=== PATIENT | male | born 1955 | race Caucasian/White ===

== ENCOUNTER 2019-02-16 13:34 | Inpatient (IN) | payer OTHER, MEDICAID ==
[~2019-02-16] VITALS: Ht 175.3 cm; Wt 71.7 kg
[2019-02-16 15:34] LABS: BASOPHILS % (AUTO) 0.2 % (0.0-2.0); EOSINOPHILS # (AUTO) 0.1 K/uL (0.0-0.4); EOSINOPHILS % (AUTO) 1.3 % (0.0-4.0); HEMATOCRIT 39.3 % (36-54); HEMOGLOBIN 12.9 g/dL (14.0-18.0); LYMPHOCYTES # (AUTO) 1.3 K/uL (1.0-5.5); LYMPHOCYTES % (AUTO) 21.3 % (20.5-51.5); MEAN CORPUSCULAR HEMOGLOBIN 30 pg (27-31); MEAN CORPUSCULAR HGB CONC 33 % (32-36); MEAN CORPUSCULAR VOLUME 91 fL (79.0-98.0); MONOCYTES # (AUTO) 0.6 K/uL (0.0-1.0); MONOCYTES % (AUTO) 9.6 % (1.7-9.3); NEUTROPHILS # (AUTO) 4.1 K/uL (1.8-7.7); NEUTROPHILS % (AUTO) 67.6 % (40.0-70.0); PLATELET COUNT (AUTO) 185 K/uL (130-430); RED CELL DISTRIBUTION WIDTH 14.9 % (9.0-15.0)
[2019-02-16 15:57] LABS: CALCIUM 9.1 mg/dL (8.4-11.0); CREATININE 0.72 mg/dL (0.55-1.30); POTASSIUM 4.4 mmol/L (3.5-5.1)
[2019-02-16 16:06] LABS: ALBUMIN 2.9 g/dL (3.4-4.8); TOTAL BILIRUBIN 0.3 mg/dL (0.0-1.0)
[2019-02-16] MEDS ORDERED: cefTRIAXone 1 GM IVPB PREMIX 50 ML IV ONE (18:15)
[2019-02-16] MEDS ORDERED: ATEN-41 PO (18:18)
[2019-02-16] MEDS ORDERED: CALC-808 GT (18:20)
[2019-02-16] MEDS ORDERED: LACT-200 GT (18:22)
[2019-02-16] MEDS ORDERED: ONDANSETRON HCL 4 MG/2 ML VIAL IVP PRN (19:15)
[2019-02-16] MEDS ORDERED: ACETAMINOPHEN 325 MG TABLET PO PRN (19:15)
[2019-02-16] MEDS ORDERED: ZOLPIDEM TARTRATE 5 MG TABLET PO PRN (19:15)
[2019-02-16] MEDS ORDERED: IPRATROPIUM/ALBUTEROL SULFATE 3 ML AMPUL.NEB (DUONEB) INH PRN (19:15)
[2019-02-16] MEDS ORDERED: MILK OF MAGNESIA 30 ML UDC PO PRN (19:15)
[2019-02-16] MEDS ORDERED: CEFEPIME 1 GM in D5W 50 ML IV ONE (19:30)
[2019-02-16 19:54] LABS: BILIRUBIN,URINE NEGATIVE (NEGATIVE); CLARITY/URINE CLEAR (CLEAR); COLOR,URINE YELLOW (YELLOW); GLUCOSE,URINE NEGATIVE (NEGATIVE); KETONES,URINE NEGATIVE (NEGATIVE); LEUKOCYTE ESTERASE ,URINE TRACE (NEGATIVE); NITRITE, URINE NEGATIVE (NEGATIVE); PROTEIN URINE NEGATIVE (NEGATIVE); UROBILINOGEN,URINE 0.2 (0.2-1.0)
[2019-02-16 20:04] LABS: BLOOD, URINE TRACE (NEGATIVE)
[2019-02-16 20:23] LABS: BACTERIA,URINE FEW /HPF (None Seen); MUCUS,URINE None Seen /LPF (None Seen)
[2019-02-16 22:48] VITALS: BP_SYST 145
[2019-02-16] MEDS: D5NS 1,000 ML IV SCH (22:48)
[2019-02-16] MEDS: HEPARIN SODIUM,PORCINE 5000 UNITS/ML VIAL SUBCUT SCH (22:51)
[2019-02-17] VITALS: BP_SYST 135
[2019-02-17] MEDS: D5NS 1,000 ML IV SCH (05:37)
[2019-02-17 07:53] LABS: BASOPHILS % (AUTO) 0.3 % (0.0-2.0); EOSINOPHILS # (AUTO) 0.1 K/uL (0.0-0.4); EOSINOPHILS % (AUTO) 0.6 % (0.0-4.0); HEMATOCRIT 39.7 % (36-54); HEMOGLOBIN 13.1 g/dL (14.0-18.0); LYMPHOCYTES # (AUTO) 1.1 K/uL (1.0-5.5); LYMPHOCYTES % (AUTO) 12.4 % (20.5-51.5); MEAN CORPUSCULAR HEMOGLOBIN 30 pg (27-31); MEAN CORPUSCULAR HGB CONC 33 % (32-36); MEAN CORPUSCULAR VOLUME 91 fL (79.0-98.0); MONOCYTES # (AUTO) 0.9 K/uL (0.0-1.0); MONOCYTES % (AUTO) 9.7 % (1.7-9.3); NEUTROPHILS # (AUTO) 6.8 K/uL (1.8-7.7); PLATELET COUNT (AUTO) 177 K/uL (130-430); RED BLOOD CELL COUNT(AUTO) 4.37 MIL/uL (4.2-6.2); RED CELL DISTRIBUTION WIDTH 14.9 % (9.0-15.0); WHITE BLOOD COUNT (AUTO) 8.8 K/uL (4.8-10.8)
[2019-02-17 08:08] LABS: CALCIUM 8.6 mg/dL (8.4-11.0); CREATININE 0.66 mg/dL (0.55-1.30); POTASSIUM 3.9 mmol/L (3.5-5.1)
[2019-02-17 08:16] VITALS: BP_SYST 113
[2019-02-17] MEDS: ATENOLOL 25 MG TABLET(TENORMIN) PO SCH (09:00)
[2019-02-17] MEDS ORDERED: CALCIUM 200 mg(from Citrate)/VITAMIN D3 250 units TABLET GT SCH (09:00)
[2019-02-17] MEDS: CEFEPIME 1 GM in D5W 50 ML IV SCH ×2 (11:28→22:03)
[2019-02-17] MEDS: HEPARIN SODIUM,PORCINE 5000 UNITS/ML VIAL SUBCUT SCH ×2 (11:30→22:30)
[2019-02-17] MEDS: CALCIUM CARBONATE/VITAMIN D3 1 TAB TABLET GT SCH (11:35)
[2019-02-17 12:02] VITALS: BP_SYST 101
[2019-02-17 16:31] VITALS: BP_SYST 118
[2019-02-18] MEDS ORDERED: VANCOMYCIN HCL 1 GM/NS PREMIX 250 ML IV ONE
[2019-02-18] MEDS ORDERED: VANCOMYCIN HCL 1000 MG/VIAL IV ONE (00:31)
[2019-02-18 01:09] VITALS: BP_SYST 110
[2019-02-19 20:00] VITALS: BP_SYST 148
[2019-02-19] MEDS: D5NS 1,000 ML IV SCH (21:44)
[2019-02-19] MEDS: CEFEPIME 1 GM in D5W 50 ML IV SCH (21:46)
[2019-02-19] MEDS: HEPARIN SODIUM,PORCINE 5000 UNITS/ML VIAL SUBCUT SCH (21:55)
[2019-02-20] MEDS: D5NS 1,000 ML IV SCH (00:11)
[2019-02-20 02:22] VITALS: BP_SYST 136
[2019-02-20] MEDS ORDERED: PIPERACILLIN/TAZOBACTAM 4.5 GM/VIAL (ZOSYN) IV ONE (05:54)
[2019-02-20] MEDS ORDERED: PIPERACILLIN/TAZO 3.375/DEX-IS 50 ML IV SCH (06:00)
[2019-02-20] MEDS: PIPERACILLIN/TAZO 4.5GM/DEX-IS 100 ML IV SCH ×2 (06:29→15:08)
[2019-02-20 07:41] LABS: BASOPHILS % (AUTO) 0.1 % (0.0-2.0); EOSINOPHILS # (AUTO) 0.1 K/uL (0.0-0.4); EOSINOPHILS % (AUTO) 1.1 % (0.0-4.0); HEMATOCRIT 34.2 % (36-54); HEMOGLOBIN 11.6 g/dL (14.0-18.0); LYMPHOCYTES % (AUTO) 16.6 % (20.5-51.5); MEAN CORPUSCULAR HEMOGLOBIN 31 pg (27-31); MEAN CORPUSCULAR HGB CONC 34 % (32-36); MEAN CORPUSCULAR VOLUME 91 fL (79.0-98.0); MONOCYTES # (AUTO) 1.7 K/uL (0.0-1.0); MONOCYTES % (AUTO) 14.2 % (1.7-9.3); NEUTROPHILS # (AUTO) 8.1 K/uL (1.8-7.7); PLATELET COUNT (AUTO) 219 K/uL (130-430); RED BLOOD CELL COUNT(AUTO) 3.78 MIL/uL (4.2-6.2); RED CELL DISTRIBUTION WIDTH 15.2 % (9.0-15.0); WHITE BLOOD COUNT (AUTO) 11.9 K/uL (4.8-10.8)
[2019-02-20 08:00] VITALS: BP_SYST 110
[2019-02-20] MEDS: CALCIUM CARBONATE/VITAMIN D3 1 TAB TABLET GT SCH (08:56)
[2019-02-20] MEDS: ATENOLOL 25 MG TABLET(TENORMIN) PO SCH (08:56)
[2019-02-20] MEDS: HEPARIN SODIUM,PORCINE 5000 UNITS/ML VIAL SUBCUT SCH (08:58)
[2019-02-20] MEDS ORDERED: VANCOMYCIN HCL 1.25 GM/NS 250 ML IV SCH (10:00)
[2019-02-20 10:11] LABS: CALCIUM 8.5 mg/dL (8.4-11.0); CREATININE 0.54 mg/dL (0.55-1.30); POTASSIUM 3.5 mmol/L (3.5-5.1)
[2019-02-20] MEDS ORDERED: VANCOMYCIN HCL 1 GM/NS PREMIX 250 ML IV SCH (11:00)
[2019-02-20 11:49] VITALS: BP_SYST 112
[2019-02-20 17:18] VITALS: BP_SYST 119
[2019-02-22 15:57] LABS: HEMATOCRIT 35.7 % (36-54); HEMOGLOBIN 11.8 g/dL (14.0-18.0); MEAN CORPUSCULAR HEMOGLOBIN 30 pg (27-31); MEAN CORPUSCULAR VOLUME 91 fL (79.0-98.0); RED BLOOD CELL COUNT(AUTO) 3.91 MIL/uL (4.2-6.2); WHITE BLOOD COUNT (AUTO) 16.2 K/uL (4.8-10.8)
[2019-02-22 15:58] LABS: MEAN CORPUSCULAR HGB CONC 33 % (32-36); PLATELET COUNT (AUTO) 188 K/uL (130-430)
[2019-02-22 16:00] LABS: BAND % (MANUAL) 9 % (0-6); LYMPHOCYTES % (MANUAL) 5 % (20-46)
[2019-02-22 16:01] LABS: BASOPHILS % (MANUAL) 0 % (0-2); EOSINOPHILS % (MANUAL) 0 % (0-7); MONOCYTES % (MANUAL) 10 % (0-11)
[2019-02-22 16:02] LABS: POTASSIUM 3.9 mmol/L (3.5-5.1)
[2019-02-22 16:03] LABS: ALBUMIN 2.5 g/dL (3.4-4.8); CALCIUM 8.5 mg/dL (8.4-11.0); CREATININE 0.67 mg/dL (0.55-1.30); TOTAL BILIRUBIN 0.4 mg/dL (0.0-1.0)
[2019-02-22 16:04] LABS: THYROID STIMULATING HORMONE 7.85 uIu/mL (0.34-4.82)
[2019-03-12 09:39] LABS: POTASSIUM 3.7 mmol/L (3.5-5.1)
[2019-03-12 09:40] LABS: CALCIUM 8.5 mg/dL (8.4-11.0); CREATININE 0.66 mg/dL (0.55-1.30); WHITE BLOOD COUNT (AUTO) 16.9 K/uL (4.8-10.8)
[2019-03-12 09:41] LABS: EOSINOPHILS % (AUTO) 0.2 % (0.0-4.0); HEMATOCRIT 34.7 % (36-54); HEMOGLOBIN 11.4 g/dL (14.0-18.0); LYMPHOCYTES % (AUTO) 10.3 % (20.5-51.5); MEAN CORPUSCULAR HEMOGLOBIN 30 pg (27-31); MEAN CORPUSCULAR HGB CONC 33 % (32-36); MEAN CORPUSCULAR VOLUME 93 fL (79.0-98.0); MONOCYTES % (AUTO) 10.1 % (1.7-9.3); PLATELET COUNT (AUTO) 173 K/uL (130-430); RED BLOOD CELL COUNT(AUTO) 3.75 MIL/uL (4.2-6.2); RED CELL DISTRIBUTION WIDTH 15.6 % (9.0-15.0)
[2019-03-12 09:42] LABS: BASOPHILS # (AUTO) 0.1 K/uL (0.0-0.2); BASOPHILS % (AUTO) 0.4 % (0.0-2.0); LYMPHOCYTES # (AUTO) 1.7 K/uL (1.0-5.5); MONOCYTES # (AUTO) 1.7 K/uL (0.0-1.0); NEUTROPHILS # (AUTO) 13.3 K/uL (1.8-7.7)
== END 2019-02-20 19:20 | DRG 871 ==
LOC: SED 13:34 → STU 18:45
PROVIDERS: ADMIT Internal Medicine; ATTEND Internal Medicine
DX: A41.9 Sepsis, unspecified organism (principal); G93.41 Metabolic encephalopathy; N39.0 Urinary tract infection, site not specified; E87.2 Acidosis; G93.1 Anoxic brain damage, not elsewhere classified; E44.0 Moderate protein-calorie malnutrition; J20.9 Acute bronchitis, unspecified; I10 Essential (primary) hypertension; E86.0 Dehydration; B96.89 Other specified bacterial agents as the cause of diseases classified elsewhere; F79 Unspecified intellectual disabilities; F31.9 Bipolar disorder, unspecified; R13.10 Dysphagia, unspecified; Z79.899 Other long term (current) drug therapy; Z90.49 Acquired absence of other specified parts of digestive tract; Z93.1 Gastrostomy status
CPT/HCPCS: 36415; 71045; 80048; 80053; 81000-TC; 83605; 83735-TC; 84443-TC; 84484; 85007; 85025; 85027; 85610-TC; 85730-TC; 87040-TC; 87081; 87086; 93005; 96365; 99285; G0378; J0692; J0696; J1644; J2543; J3370; J7042; J7050; J7060

== ENCOUNTER 2019-03-09 06:30 | Day surgery (SDC) | payer OTHER, MEDICAID ==
[~2019-03-09 06:30] MED LIST: ATEN-41 PO; CALC-808 GT; LACT-200 GT
[2019-03-09] MEDS ORDERED: SIMETHICONE 40 MG/0.6 ML ML ONE (07:16)
[2019-03-09] MEDS ORDERED: BENZOCAINE 20% 0.5mL UD SPRAY MM ONE (07:16)
[2019-03-09] MEDS ORDERED: fentaNYL CITRATE/PF 100 MCG/2 ML AMP ONE (07:16)
[2019-03-09] MEDS ORDERED: MIDAZOLAM HCL 5 MG/5 ML VIAL ONE (07:17)
[2019-03-09 10:27] VITALS: BP_SYST 120
== END 2019-03-09 08:50 ==
LOC: SDS 06:30 → SMU 08:14 → SDS 08:50
PROVIDERS: ATTEND Internal Medicine
DX: R13.12 Dysphagia, oropharyngeal phase (principal); J40 Bronchitis, not specified as acute or chronic; J44.9 Chronic obstructive pulmonary disease, unspecified; D64.9 Anemia, unspecified; I12.9 Hypertensive chronic kidney disease with stage 1 through stage 4 chronic kidney disease, or unspecified chronic kidney disease; N18.9 Chronic kidney disease, unspecified; G93.1 Anoxic brain damage, not elsewhere classified; K29.70 Gastritis, unspecified, without bleeding; K21.9 Gastro-esophageal reflux disease without esophagitis
CPT/HCPCS: 43247; G0378; J2250; J3010

== ENCOUNTER 2022-04-04 09:31 | Inpatient (IN) | payer OTHER, MEDICAID ==
[~2022-04-04] VITALS: Ht 152.4 cm; Wt 47.6 kg
[2022-04-04 09:39] VITALS: BP_SYST 127
[2022-04-04] MEDS ORDERED: NACL 0.9% 1,000 ML IV ONE (10:00)
[2022-04-04] MEDS ORDERED: FAMO40TA71 GT (10:05)
[2022-04-04] MEDS ORDERED: ONDA4TAB55 GT (10:05)
[2022-04-04] MEDS ORDERED: LORA-258 GT (10:05)
[2022-04-04] MEDS ORDERED: IPRA3AMP9 INH (10:05)
[2022-04-04] MEDS ORDERED: CLON0.1T GT (10:05)
[2022-04-04] MEDS ORDERED: AMIN30LI2 GT (10:05)
[2022-04-04] MEDS ORDERED: TRAZ-250 GT (10:05)
[2022-04-04] MEDS ORDERED: MULT-1193 GT (10:05)
[2022-04-04] MEDS ORDERED: METO-290 GT (10:05)
[2022-04-04] MEDS ORDERED: VALP250S3 GT ×2 (10:05)
[2022-04-04] MEDS ORDERED: GLYC2TAB21 GT (10:05)
[2022-04-04] MEDS ORDERED: ASCO500T20 GT (10:05)
[2022-04-04] MEDS ORDERED: SER100 GT (10:05)
[2022-04-04] MEDS ORDERED: ACET325T GT (10:05)
[2022-04-04] MEDS ORDERED: FER300L GT (10:05)
[2022-04-04 10:33] LABS: BASOPHILS % (AUTO) 0.1 % (0.0-2.0); EOSINOPHILS # (AUTO) 0.3 K/uL (0.0-0.4); EOSINOPHILS % (AUTO) 3.4 % (0.0-4.0); HEMATOCRIT 31.1 % (36-54); HEMOGLOBIN 10.4 g/dL (14.0-18.0); LYMPHOCYTES # (AUTO) 1.5 K/uL (1.0-5.5); LYMPHOCYTES % (AUTO) 17.2 % (20.5-51.5); MEAN CORPUSCULAR HEMOGLOBIN 32 pg (27-31); MEAN CORPUSCULAR HGB CONC 34 % (32-36); MEAN CORPUSCULAR VOLUME 95 fL (79.0-98.0); MONOCYTES # (AUTO) 0.7 K/uL (0.0-1.0); MONOCYTES % (AUTO) 7.7 % (1.7-9.3); NEUTROPHILS # (AUTO) 6.4 K/uL (1.8-7.7); NEUTROPHILS % (AUTO) 71.6 % (40.0-70.0); PLATELET COUNT (AUTO) 212 K/uL (130-430); RED BLOOD CELL COUNT(AUTO) 3.29 MIL/uL (4.2-6.2); RED CELL DISTRIBUTION WIDTH 15.8 % (9.0-15.0); WHITE BLOOD COUNT (AUTO) 8.9 K/uL (4.8-10.8)
[2022-04-04 10:47] LABS: ANION GAP 7 (5-15); CALCIUM 9.4 mg/dL (8.4-11.0); CHLORIDE 99 mmol/L (98-107); CREATININE 0.56 mg/dL (0.55-1.30); GLUCOSE 88 mg/dL (70-99); UREA NITROGEN, BLOOD 36 mg/dL (8-21)
[2022-04-04 10:48] LABS: BILIRUBIN,URINE NEGATIVE (NEGATIVE); CLARITY/URINE CLEAR (CLEAR); COLOR,URINE YELLOW (YELLOW); GLUCOSE,URINE NEGATIVE (NEGATIVE); KETONES,URINE TRACE (NEGATIVE); LEUKOCYTE ESTERASE ,URINE NEGATIVE (NEGATIVE); NITRITE, URINE NEGATIVE (NEGATIVE); PROTEIN URINE TRACE (NEGATIVE)
[2022-04-04 10:49] LABS: BLOOD, URINE TRACE (NEGATIVE)
[2022-04-04 10:55] LABS: ALANINE AMINOTRANSFERASE 20 U/L (12-78); ALBUMIN 2.4 g/dL (3.4-4.8); ASPARTATE AMINOTRANSFERASE 20 U/L (10-37); TOTAL BILIRUBIN 0.9 mg/dL (0.0-1.0)
[2022-04-04 10:56] LABS: GFR AFRICAN AMERICAN 186 mL/min (>90)
[2022-04-04 11:51] LABS: BACTERIA,URINE FEW /HPF (None Seen); WBC,URINE 0-3 /HPF (0-3); YEAST,URINE Few /HPF (None Seen)
[2022-04-04 15:16] VITALS: BP_SYST 141
[2022-04-04 16:39] VITALS: BP_SYST 123
[2022-04-04] MEDS: D5/0.45 NS 1,000 ML IV SCH (17:16)
[2022-04-04] MEDS ORDERED: KCL 40 mEq in 100 mL (PREMIX) 100 ML IV ONE (18:15)
[2022-04-04 19:30] VITALS: BP_SYST 135
[2022-04-04] MEDS: IPRATROPIUM/ALBUTEROL SULFATE 3 ML AMPUL.NEB (DUONEB) INH SCH (20:41)
[2022-04-04] MEDS: POTASSIUM CHLORIDE 20 mEq in 100 mL (PREMIX) 100 ML x 2 doses IV SCH ×2 (20:54→21:57)
[2022-04-04] MEDS ORDERED: LORazepam 2 MG/ML VIAL IVP PRN (21:30)
[2022-04-04] MEDS ORDERED: LevETIRAcetam 500 MG/5 ML UDC ORAL LIQUID ONE (22:39)
[2022-04-04] MEDS: levETIRAcetam 500 MG in NS 100 ML IV SCH (23:56)
[2022-04-05] VITALS: BP_SYST 127
[2022-04-05] MEDS: IPRATROPIUM/ALBUTEROL SULFATE 3 ML AMPUL.NEB (DUONEB) INH SCH ×4 (01:38→20:17)
[2022-04-05] MEDS: D5/0.45 NS 1,000 ML IV SCH ×2 (05:27→21:14)
[2022-04-05 07:40] VITALS: BP_SYST 133
[2022-04-05] MEDS: levETIRAcetam 500 MG in NS 100 ML IV SCH (09:02)
[2022-04-05 11:33] VITALS: BP_SYST 133
[2022-04-05] MEDS ORDERED: MEPERIDINE HCL/PF 25 MG/ML DISP.SYRIN ONE (11:38)
[2022-04-05] MEDS ORDERED: SIMETHICONE 40 MG/0.6 ML ML ONE (11:38)
[2022-04-05] MEDS ORDERED: MIDAZOLAM HCL 5 MG/5 ML VIAL ONE (11:38)
[2022-04-05] MEDS ORDERED: LORazepam 1 MG TABLET GT PRN (15:15)
[2022-04-05] MEDS ORDERED: METOCLOPRAMIDE HCL 10 MG TABLET GT PRN (15:15)
[2022-04-05] MEDS ORDERED: cloNIDine HCL 0.1 MG TABLET GT PRN (15:15)
[2022-04-05 16:11] VITALS: BP_SYST 99
[2022-04-05 19:20] VITALS: BP_SYST 130
[2022-04-05] MEDS ORDERED: MUPIROCIN 2% TOPICAL OINTMENT 22 GM NS SCH (21:00)
[2022-04-05] MEDS ORDERED: VALPROIC ACID ORAL SYRUP 250 MG/5 ML UDC GT SCH (21:00)
[2022-04-05] MEDS ORDERED: traZODone HCL 50 MG TABLET (DESYREL) GT SCH (21:00)
[2022-04-05] MEDS: QUEtiapine FUMARATE 100 MG TABLET GT SCH (21:11)
[2022-04-06 00:25] VITALS: BP_SYST 105
[2022-04-06] MEDS: IPRATROPIUM/ALBUTEROL SULFATE 3 ML AMPUL.NEB (DUONEB) INH SCH ×2 (01:47→07:14)
[2022-04-06 08:35] VITALS: BP_SYST 116
[2022-04-06] MEDS ORDERED: CALCIUM 200 mg(from Citrate)/VITAMIN D3 250 units TABLET GT SCH (09:00)
[2022-04-06] MEDS ORDERED: CALCIUM CARBONATE/VITAMIN D3 1 TAB TABLET GT SCH (09:00)
[2022-04-06] MEDS ORDERED: VALPROIC ACID ORAL SYRUP 250 MG/5 ML UDC GT SCH (09:00)
[2022-04-06] MEDS ORDERED: FERROUS SULFATE 300 MG/5 ML UDC GT SCH (09:00)
[2022-04-06] MEDS ORDERED: ASCORBIC ACID 500 MG TABLET GT SCH (09:00)
[2022-04-06] MEDS ORDERED: ATENOLOL 25 MG TABLET(TENORMIN) PO SCH (09:00)
[2022-04-06] MEDS ORDERED: FAMOTIDINE 20 MG TABLET GT SCH (09:00)
[2022-04-06 09:10] VITALS: BP_SYST 116
[2022-04-06] MEDS: QUEtiapine FUMARATE 100 MG TABLET GT SCH (09:34)
== END 2022-04-06 11:20 | DRG 393 ==
LOC: SED 09:31 → STU 12:21
PROVIDERS: ADMIT Family Medicine; ATTEND Family Medicine
PROC: 5A1945Z Respiratory Ventilation, 24-96 Consecutive Hours (ICD-10-PCS; principal; 2022-04-04)
PROC: 0DHA8UZ Insertion of Feeding Device into Jejunum, Via Natural or Artificial Opening Endoscopic (ICD-10-PCS; 2022-04-05)
PROC: 0DP Gastrointestinal System, Removal (ICD-10-PCS; 2022-04-05)
DX: K94.23 Gastrostomy malfunction (principal); E41 Nutritional marasmus; E44.0 Moderate protein-calorie malnutrition; J96.10 Chronic respiratory failure, unspecified whether with hypoxia or hypercapnia; Z99.11 Dependence on respirator [ventilator] status; G40.909 Epilepsy, unspecified, not intractable, without status epilepticus; R13.10 Dysphagia, unspecified; F99 Mental disorder, not otherwise specified; Z20.822 Contact with and (suspected) exposure to COVID-19; K29.70 Gastritis, unspecified, without bleeding; K20.90 Esophagitis, unspecified without bleeding; J44.9 Chronic obstructive pulmonary disease, unspecified; F32.A Depression, unspecified; F41.9 Anxiety disorder, unspecified; I10 Essential (primary) hypertension; Z85.828 Personal history of other malignant neoplasm of skin; Z68.20 Body mass index [BMI] 20.0-20.9, adult
CPT/HCPCS: 36415; 71045; 80053; 81000; 83605; 84484; 85025; 87040; 87081; 87086; 93005; 94002; 94003; 94640; 94760; 99285; G0378; J1953; J2175; J2250; J3480

== ENCOUNTER 2022-04-15 12:56 | Inpatient (IN) | payer MEDICAID, OTHER ==
[~2022-04-15] VITALS: Ht 170.2 cm; Wt 53.1 kg
[~2022-04-15 12:56] MED LIST changes: +ACET325T GT; +AMIN30LI2 GT; +ASCO500T20 GT; +CLON0.1T GT; +FAMO40TA71 GT; +FER300L GT; +GLYC2TAB21 GT; +IPRA3AMP9 INH; +LORA-258 GT; +METO-290 GT; +MULT-1193 GT; +ONDA4TAB55 GT; +SER100 GT; +TRAZ-250 GT; +VALP250S3 GT
[2022-04-15 12:57] VITALS: BP_SYST 142
--- NOTE | 2022-04-15 12:59 | NUR ---
BROUGHT IN BY [facility] WITH RESP THERAPIST, PLACED IN HALLWAY AND TRIAGED. AWAITING BED AVAILABILITY IN ER.
--- NOTE | 2022-04-15 14:10 | NUR ---
MD WILSON AT BEDSIDE FOR MSE. MOBLEY DRAINAGE BAG ATTACHED TO J-G TUBE DRAINING GREEN/BILE LIQUID. TUBE HAS THREE WAY PORT. PER MD, DO NOT ATTEMPT TO FLUSH AND CHECK PATENCY. WILL ADMIT AND REFER TO GI. NAD NOTED. RT AT BEDSIDE TO ATTACH PATIENT TO VENT, CHRONIC VENT/TRACH PATIENT. PT AAOX1, NON VERBAL. VSS. WILL CONT TO MONITOR PT.
[2022-04-15 14:24] LABS: BASOPHILS # (AUTO) 0.1 K/uL (0.0-0.2); BASOPHILS % (AUTO) 0.5 % (0.0-2.0); EOSINOPHILS # (AUTO) 0.1 K/uL (0.0-0.4); LYMPHOCYTES % (AUTO) 16.9 % (20.5-51.5); MEAN CORPUSCULAR HEMOGLOBIN 32 pg (27-31); MEAN CORPUSCULAR HGB CONC 35 % (32-36); MEAN CORPUSCULAR VOLUME 93 fL (79.0-98.0); MONOCYTES # (AUTO) 1.5 K/uL (0.0-1.0); MONOCYTES % (AUTO) 12.2 % (1.7-9.3); NEUTROPHILS # (AUTO) 8.2 K/uL (1.8-7.7); NEUTROPHILS % (AUTO) 69.4 % (40.0-70.0); PLATELET COUNT (AUTO) 457 K/uL (130-430); RED BLOOD CELL COUNT(AUTO) 3.45 MIL/uL (4.2-6.2); RED CELL DISTRIBUTION WIDTH 14.5 % (9.0-15.0); WHITE BLOOD COUNT (AUTO) 11.9 K/uL (4.8-10.8)
--- NOTE | 2022-04-15 14:24 | NUR ---
NO MEDS LIST [facility] UNABLE TO COMPLETE MED REC.
[2022-04-15 14:29] LABS: CALCIUM 9.9 mg/dL (8.4-11.0); CREATININE 0.6 mg/dL (0.55-1.30)
[2022-04-15 14:33] LABS: ALBUMIN 2.8 g/dL (3.4-4.8); TOTAL BILIRUBIN 0.5 mg/dL (0.0-1.0)
--- NOTE | 2022-04-15 14:33 | NUR ---
VENT SETTING AC14, VT 450, PEEP 5, FIO2@30%, PORTEX 8 TRACH SIZE.
[2022-04-15] MEDS ORDERED: DIATR MEGLU/DIATRIZ SOD 30 ML SOLUTION PO ONE (15:38)
--- NOTE | 2022-04-15 15:55 | NUR ---
COVID SWAB OBTAINED AND SENT TO LAB.
--- NOTE | 2022-04-15 17:43 | NUR ---
Admit bed requested Patient will be admitted to care of BYRON Nuñez. Admitted to TELEMETRY unit. Diagnosis POSSIBLE SEPSIS, NON FUNCTIONING GJ-TUBE Inpatient (Yes or No) YES Observation (Yes or No) NO Orientation concerns or request close to nursing station (Yes or No) NO Covid Status NEGATIVE On vent or bipap YES Isolation requirements NO Needs a sitter NO From Home (Yes or if No enter name of facility) NO[facility] Requires Dialysis (Yes or No) NO Med Rec Completed (Yes of No) NO, NO MEDS LIST PROVIDED FROM [facility]
[2022-04-15] MEDS: D5/0.45 NS 1,000 ML IV SCH (18:01)
[2022-04-15 18:51] VITALS: BP_SYST 149
--- NOTE | 2022-04-15 19:20 | NUR ---
Received pt up in bed in no acute distress. Tolerating vent settings well. VSS.
[2022-04-15 19:55] VITALS: BP_SYST 135
[2022-04-15 21:08] VITALS: BP_SYST 132
--- NOTE | 2022-04-15 23:15 | NUR ---
Patient will be admitted to care of MD MCMULLEN. Admitted to TELE unit. Will go to room 135A. Complete and up to date summary report printed. SBAR report given at bedside to MARY Julien with opportunity for questions.
[2022-04-15 23:38] VITALS: BP_SYST 127
--- NOTE | 2022-04-16 | NUR ---
ADMIT NOTE Received pt from ER to the floor with a diagnosis of [G TUBE MALFUNCTION] patient on ventilator FI02 30 % non verbal 02 SAT 95 % Trach suction moderate amount of thick rod sputum tolerated SAFETY measures implemented / .
[2022-04-16] MEDS ORDERED: IPRATROPIUM/ALBUTEROL SULFATE 3 ML AMPUL.NEB (DUONEB) INH PRN (00:30)
[2022-04-16 01:00] VITALS: BP_SYST 125
[2022-04-16 01:08] VITALS: BP_SYST 127
--- NOTE | 2022-04-16 04:20 | NUR ---
Hourly Rounding Reposition & Turn patient kept clean also dry as needed / .
--- NOTE | 2022-04-16 05:16 | NUR ---
CONSULTATION PAGED/CALLED Reason for Consultation: TRACH DEPENDENT Person Who was Notified:MICHAEL Consulting Physician: BLAISE Net Developer Contract Specialty: Ordering Physician: BENEDICT
--- NOTE | 2022-04-16 05:45 | NUR ---
CONSULTATION PAGED/CALLED Reason for Consultation: NON -FUNCTIONING G TUBE Person Who was Notified: MICHAEL Consulting Physician: VERONICA ALARCON IS COMPUTER SCIENCE INSTRUCTOR Cut Filer Specialty: [] Ordering Physician: BENEDICT
--- NOTE | 2022-04-16 06:34 | NUR ---
Phoned paged DR MATTHEWS D/O . due to patient poor lokesh access & asking for midline IV / .
--- NOTE | 2022-04-16 07:06 | NUR ---
PHONED DR MATTHEWS AGAIN Call Back pending / .
[2022-04-16 07:34] LABS: BASOPHILS # (AUTO) 0.1 K/uL (0.0-0.2); BASOPHILS % (AUTO) 0.7 % (0.0-2.0); EOSINOPHILS # (AUTO) 0.1 K/uL (0.0-0.4); EOSINOPHILS % (AUTO) 0.6 % (0.0-4.0); HEMATOCRIT 31.3 % (36-54); HEMOGLOBIN 10.9 g/dL (14.0-18.0); LYMPHOCYTES % (AUTO) 17.1 % (20.5-51.5); MEAN CORPUSCULAR HEMOGLOBIN 32 pg (27-31); MEAN CORPUSCULAR HGB CONC 35 % (32-36); MEAN CORPUSCULAR VOLUME 93 fL (79.0-98.0); MONOCYTES # (AUTO) 1.8 K/uL (0.0-1.0); MONOCYTES % (AUTO) 10.6 % (1.7-9.3); NEUTROPHILS # (AUTO) 12.3 K/uL (1.8-7.7); PLATELET COUNT (AUTO) 403 K/uL (130-430); RED BLOOD CELL COUNT(AUTO) 3.37 MIL/uL (4.2-6.2); RED CELL DISTRIBUTION WIDTH 14.4 % (9.0-15.0); WHITE BLOOD COUNT (AUTO) 17.4 K/uL (4.8-10.8)
[2022-04-16] MEDS: IPRATROPIUM/ALBUTEROL SULFATE 3 ML AMPUL.NEB (DUONEB) INH SCH ×3 (07:56→21:44)
[2022-04-16 08:12] VITALS: BP_SYST 120
--- NOTE | 2022-04-16 08:12 | NUR ---
INITIAL ROUNDS Received pt awake, confused, non-verbal, on vent via trach, trach settings verified. HOB elevated for aspiration precautions. No IV in place, new IV placed to DEEJAY 22 gauge with IVF now infusing well at ordered rate. J-G tube in place with g-tube with drainage bag to gravity with green drainage. J-tube off do to pin hole type leakage noted when attempted to flush with water. Pt on bilateral wrist restraints due to pt pulling at tubing. Pt repositioned with pillow support and bilat heels off-loaded for skin care. Side rails up x3, bed alarm on, room close to nursing station for safety.
[2022-04-16] MEDS ORDERED: IPRATROPIUM/ALBUTEROL SULFATE 120 PUFFS/4 GM INH INH SCH (09:00)
[2022-04-16 09:25] LABS: INR 1.1 (0.80-1.20); PROTHROMBIN TIME 11.2 SECS (9.5-12.5)
--- NOTE | 2022-04-16 12:35 | NUR ---
ROUNDS/MEDICATION Pt given due antibiotic. Oral care attempted-pt kept closing his mouth. Pt repositioned with pillow support and heels off-loaded for skin care. All precautions remain in place.
[2022-04-16 12:36] VITALS: BP_SYST 134
[2022-04-16] MEDS: cefTRIAXone 1 GM IVPB PREMIX 50 ML IV SCH (12:49)
[2022-04-16] MEDS: D5/0.45 NS 1,000 ML IV SCH ×2 (16:03→18:45)
--- NOTE | 2022-04-16 16:15 | NUR ---
RECEIVED CONSENT Received consent from the [facility], placed on chart.
[2022-04-16] MEDS: METOCLOPRAMIDE HCL 10 MG TABLET GT SCH (16:30)
[2022-04-16] MEDS ORDERED: cloNIDine HCL 0.1 MG TABLET GT PRN (16:30)
[2022-04-16] MEDS ORDERED: ACETAMINOPHEN 325 MG TABLET GT PRN (16:30)
[2022-04-16 17:16] VITALS: BP_SYST 110
--- NOTE | 2022-04-16 19:25 | NUR ---
CLOSING NOTE Pt remains restless, no s/s resp distress, no s/s pain or discomfort. IVF infusing well to DEEJAY at ordered rate with no s/s infiltration to site. G-tube has singer drainage bag draining to gravity. Pt remains NPO/not using G-J tube. Pt to have G-J tube replaced in the morning. Endorsed care to cage shift manager nurse. All precautions remain in place.
[2022-04-16 20:00] VITALS: BP_SYST 136
[2022-04-16] MEDS: traZODone HCL 50 MG TABLET (DESYREL) GT SCH (21:00)
[2022-04-16] MEDS: QUEtiapine FUMARATE 100 MG TABLET GT SCH (21:00)
[2022-04-16] MEDS: VALPROIC ACID ORAL SYRUP 250 MG/5 ML UDC GT SCH (21:00)
[2022-04-17] VITALS (7 sets, daily range): BP systolic 93–140
[2022-04-17] MEDS: METOCLOPRAMIDE HCL 10 MG TABLET GT SCH ×4 (00:11→23:22)
[2022-04-17] MEDS: D5/0.45 NS 1,000 ML IV SCH ×2 (03:08→18:19)
[2022-04-17] MEDS: IPRATROPIUM/ALBUTEROL SULFATE 3 ML AMPUL.NEB (DUONEB) INH SCH ×2 (07:00→13:52)
[2022-04-17] MEDS ORDERED: SIMETHICONE 40 MG/0.6 ML ML ONE (07:14)
--- NOTE | 2022-04-17 07:33 | NUR ---
Per NOC RN patient planned for G/J tube replacement for today. Equipment noted in room.
--- NOTE | 2022-04-17 07:34 | NUR ---
Patient received awake and alert to self only, noted to be confused and attempting to remove lines. Patient on tele, SR with elevated t wave. Patient has no noted edema to extremities. Received with Trach to Vent on AC mode - tolerating well. Patient is incontinent gi/gu, incontinent. SKin has noted redness to GJ tube site and buttocks. as well as pink/redness to buttocks. IV is a right arm 22g patent and flushing well.
[2022-04-17] MEDS: fentaNYL CITRATE/PF 100 MCG/2 ML AMP ONE ×2 (07:51→09:27)
[2022-04-17] MEDS: MIDAZOLAM HCL 5 MG/5 ML VIAL ONE ×2 (07:51→09:27)
[2022-04-17 07:55] LABS: INR 1.1 (0.80-1.20); PROTHROMBIN TIME 11.1 SECS (9.5-12.5)
[2022-04-17] MEDS: FAMOTIDINE 20 MG TABLET GT SCH (08:33)
[2022-04-17] MEDS: ATENOLOL 25 MG TABLET(TENORMIN) GT SCH (08:33)
[2022-04-17] MEDS: QUEtiapine FUMARATE 100 MG TABLET GT SCH ×2 (08:33→21:43)
[2022-04-17] MEDS: CALCIUM CARBONATE/VITAMIN D3 1 TAB TABLET GT SCH (08:33)
[2022-04-17] MEDS: ASCORBIC ACID 500 MG TABLET GT SCH (08:34)
[2022-04-17] MEDS: FERROUS SULFATE 300 MG/5 ML UDC GT SCH (08:34)
[2022-04-17] MEDS: VALPROIC ACID ORAL SYRUP 250 MG/5 ML UDC GT SCH ×2 (08:34→21:42)
--- NOTE | 2022-04-17 08:34 | NUR ---
rt notes [id number] increased fio2 to 100% for GI procedure, placed back to 30% post procedure, GI nurse aware. Addendum: 04/17/22 at 0835 by Socorro Aldana RT Amended: Links added.
--- NOTE | 2022-04-17 08:57 | NUR ---
Dietitian Recommendations * If/when appropriate, initiate Jevity 1.5 @ 50 mL/ hr (goal) Provides: 1800 kcal, 77 g PRO, 912 mL free water Meets:97% of upper est kcal, 80% of upper PRO, and 51% of upper est fluid * Recommend FWF of 150mL Q6H or per MD * Recommend DC dextrose, when TF initiated GS, MPH, RD Please refer to Nutrition F/U for further details. Thanks! Addendum: 04/17/22 at [address] Amended: Links added.
[2022-04-17] MEDS ORDERED: CALCIUM 200 mg(from Citrate)/VITAMIN D3 250 units TABLET GT SCH (09:00)
[2022-04-17] MEDS: cefTRIAXone 1 GM IVPB PREMIX 50 ML IV SCH (10:38)
--- NOTE | 2022-04-17 13:23 | NUR ---
POSITIVE MRSA SCREEN REPORTED TO DR MCMULLEN'S OFFICE, PER STAFF WOULD INFORM DR MCMULLEN AND HAVE HIM CALL BACK
--- NOTE | 2022-04-17 13:23 | NUR ---
Spoke w/ Dr Gage. He requested evaluation by Kisha Monk. Spoke to Dashawn at [facility] [phone]-they cannot accept the patient due to his insurance being [employer]. Dashawn will notify Dr Gage of the denial.
--- NOTE | 2022-04-17 13:49 | NUR ---
Patient remains on vent, tolerating well. Continues on bilateral soft wrist restraints as when released attempts to remove lines
--- NOTE | 2022-04-17 16:15 | NUR ---
paged dr bergeron again for critical mrsa result and to verify if IVF should be continued
--- NOTE | 2022-04-17 17:18 | NUR ---
Spoke with Dr Chavez, obtained orders for bactroban, patient on contact isolation and order to start vanco 1gm ivpb q12hrs.
--- NOTE | 2022-04-17 17:18 | NUR ---
received call from pharmacist to verify if vanco was MD dosed. Informed pharmacist cedeno that dr shelley did provide order as entered. Pharmacist to contact MD to verify
[2022-04-17] MEDS: VANCOMYCIN HCL 1 GM/NS PREMIX 250 ML IV SCH (18:20)
[2022-04-17] MEDS ORDERED: IPRATROPIUM BROM 0.5 MG/2.5 ML VIAL.NEB (ATROVENT) INH ONE (19:40)
[2022-04-17] MEDS ORDERED: ALBUTEROL SULFATE 0.083% 2.5 MG/3 ML VIAL.NEB INH ONE (19:40)
--- NOTE | 2022-04-17 20:00 | NUR ---
Patient received awake and alert to self only, noted to be confused and attempting to remove lines. Patient on tele, SR with elevated t wave. Patient has no noted edema to extremities. Received with Trach to Vent on AC mode - tolerating well. Patient is incontinent gi/gu, incontinent. SKin has noted redness to GJ tube site and buttocks. as well as pink/redness to buttocks. IV is a right arm 22g patent and flushing well. Pt tolerating tubefeeding well, will increase to 30mls goal is 50. will continue to monitor
[2022-04-17] MEDS: MUPIROCIN 2% TOPICAL OINTMENT 22 GM NS SCH (21:43)
[2022-04-17] MEDS: traZODone HCL 50 MG TABLET (DESYREL) GT SCH (21:44)
[2022-04-18 00:36] VITALS: BP_SYST 101
[2022-04-18] MEDS: ALBUTEROL SULFATE 0.083% 2.5 MG/3 ML VIAL.NEB INH SCH ×4 (01:34→19:54)
[2022-04-18] MEDS: IPRATROPIUM BROM 0.5 MG/2.5 ML VIAL.NEB (ATROVENT) INH SCH ×4 (01:35→19:55)
[2022-04-18] MEDS: VANCOMYCIN HCL 1 GM/NS PREMIX 250 ML IV SCH ×2 (06:03→17:52)
[2022-04-18 08:19] VITALS: BP_SYST 101
[2022-04-18 08:50] VITALS: BP_SYST 127
[2022-04-18] MEDS: ATENOLOL 25 MG TABLET(TENORMIN) GT SCH (08:50)
[2022-04-18] MEDS: CALCIUM CARBONATE/VITAMIN D3 1 TAB TABLET GT SCH (08:50)
[2022-04-18] MEDS: FAMOTIDINE 20 MG TABLET GT SCH (08:50)
[2022-04-18] MEDS: FERROUS SULFATE 300 MG/5 ML UDC GT SCH (08:50)
[2022-04-18] MEDS: METOCLOPRAMIDE HCL 10 MG TABLET GT SCH ×2 (08:50→17:52)
[2022-04-18] MEDS: QUEtiapine FUMARATE 100 MG TABLET GT SCH ×2 (08:50→20:59)
--- NOTE | 2022-04-18 08:50 | NUR ---
Scheduled medications given per order. Patient stable, resting comfortably in bed with no respiratory distress noted.
[2022-04-18] MEDS: VALPROIC ACID ORAL SYRUP 250 MG/5 ML UDC GT SCH ×2 (08:51→21:00)
[2022-04-18] MEDS: ASCORBIC ACID 500 MG TABLET GT SCH (08:51)
[2022-04-18] MEDS: MUPIROCIN 2% TOPICAL OINTMENT 22 GM NS SCH ×2 (08:52→21:02)
--- NOTE | 2022-04-18 10:20 | NUR ---
Patient stable; resting comfortably in bed with no respiratory distress noted.
[2022-04-18] MEDS: cefTRIAXone 1 GM IVPB PREMIX 50 ML IV SCH (11:10)
--- NOTE | 2022-04-18 11:10 | NUR ---
Scheduled IV abx given per order. Patient stable at this time. No respiratory distress noted.
--- NOTE | 2022-04-18 12:55 | NUR ---
Patient stable; resting comfortably in bed with no respiratory distress noted.
--- NOTE | 2022-04-18 13:45 | NUR ---
Patient resting comfortably in bed with Loli, RT at bedside; no respiratory distress noted.
[2022-04-18 14:08] VITALS: BP_SYST 97
--- NOTE | 2022-04-18 14:25 | NUR ---
Returned call to Cindy Ayon, Electronic Page Makeup System Operator at [phone]. Advised that J/G tube was placed on 04-17-22 and patient is stable at this time. Mr. Ayon provided a ph# for after hours: [phone].
--- NOTE | 2022-04-18 15:45 | NUR ---
Patient resting in bed with daughter and Adilene (tech) at bedside; 2D echo in progress. Patient stable at this time. Addendum: 04/18/22 at 1621 by Magda Jenkins RN WRONG PATIENT
--- NOTE | 2022-04-18 16:00 | NUR ---
Wound Evaluation: Wound Consult ordered for Low Steve Score. Patient evaluated for a low Steve score of a 9. Patient was awake, non-verbal, non-responsive to verbal commands and received in a Azalea Bed with an IsoFlex AYO mattress with low air loss therapy initiated. Patient needs to be turned in bed. Skin assessment: 1. Right Dorsal Hand: Small brown scab, present on admission. No odor, no drainage. Scab measures 1.0 cm x 0.6 cm. Recommend: No dressing needed. Continue to monitor site every shift. 2. G-Tube exit site: Mild erythema with a small brown scab present on the left lateral portion of the exit site, present on admission. No odor, no drainage. Scab measures 1.0 cm x 0.6 cm. Recommend: Cleanse involved area with mild soap and water. Gently pat dry apply Hydraguard barrier cream to erythematous and scab sites. Perform site care 4 times daily and as needed for soiling. Also recommend: Reposition patient every 2 hours with pillow support. Elevate, off-load and float bilateral heels with 1 pillow lengthwise under each extremity at all times. Offload pressure areas with pillows for pressure re-distribution. Perform skin care and monitor skin integrity Q shift. Use moisture barrier cream on moisture susceptible areas QID and PRN for soiling. Maintain patient on a low air-loss mattress.
--- NOTE | 2022-04-18 16:05 | NUR ---
Dr. Gage at nurses' station. Per doctor, d/c planning for return to [place]. Need pulmonary clearance from Dr. Matthew.
[2022-04-18 17:13] VITALS: BP_SYST 127
[2022-04-18] MEDS: D5/0.45 NS 1,000 ML IV SCH (17:52)
--- NOTE | 2022-04-18 17:54 | NUR ---
Scheduled IV abx and po medication given per order. Started new IVF bag. Patient stable at this time.
[2022-04-18 20:00] VITALS: BP_SYST 113
[2022-04-18] MEDS: traZODone HCL 50 MG TABLET (DESYREL) GT SCH (20:59)
[2022-04-19] VITALS (7 sets, daily range): BP systolic 88–118
[2022-04-19] MEDS: METOCLOPRAMIDE HCL 10 MG TABLET GT SCH ×4 (00:42→23:44)
[2022-04-19] MEDS: ALBUTEROL SULFATE 0.083% 2.5 MG/3 ML VIAL.NEB INH SCH ×4 (01:09→19:57)
[2022-04-19] MEDS: IPRATROPIUM BROM 0.5 MG/2.5 ML VIAL.NEB (ATROVENT) INH SCH ×4 (01:10→19:57)
[2022-04-19] MEDS: VANCOMYCIN HCL 1 GM/NS PREMIX 250 ML IV SCH (06:40)
--- NOTE | 2022-04-19 07:47 | NUR ---
Closing Patient is resting in bed, soft restrains on wrist. G/J tube in place patent and intact feeding as order, IV infusing as order, bed at lowest position with alarm on, call light within reach.
[2022-04-19 08:08] LABS: BASOPHILS % (AUTO) 0.1 % (0.0-2.0); EOSINOPHILS # (AUTO) 0.2 K/uL (0.0-0.4); EOSINOPHILS % (AUTO) 1.3 % (0.0-4.0); HEMOGLOBIN 9.3 g/dL (14.0-18.0); LYMPHOCYTES # (AUTO) 1.8 K/uL (1.0-5.5); LYMPHOCYTES % (AUTO) 14.5 % (20.5-51.5); MEAN CORPUSCULAR HEMOGLOBIN 32 pg (27-31); MEAN CORPUSCULAR HGB CONC 34 % (32-36); MEAN CORPUSCULAR VOLUME 93 fL (79.0-98.0); MONOCYTES % (AUTO) 7.8 % (1.7-9.3); NEUTROPHILS # (AUTO) 9.3 K/uL (1.8-7.7); NEUTROPHILS % (AUTO) 76.3 % (40.0-70.0); PLATELET COUNT (AUTO) 319 K/uL (130-430); RED BLOOD CELL COUNT(AUTO) 2.91 MIL/uL (4.2-6.2); RED CELL DISTRIBUTION WIDTH 14.5 % (9.0-15.0); WHITE BLOOD COUNT (AUTO) 12.2 K/uL (4.8-10.8)
[2022-04-19] MEDS: FERROUS SULFATE 300 MG/5 ML UDC GT SCH (08:29)
[2022-04-19] MEDS: CALCIUM CARBONATE/VITAMIN D3 1 TAB TABLET GT SCH (08:29)
[2022-04-19] MEDS: ATENOLOL 25 MG TABLET(TENORMIN) GT SCH (08:30)
[2022-04-19] MEDS: FAMOTIDINE 20 MG TABLET GT SCH (08:30)
[2022-04-19] MEDS: QUEtiapine FUMARATE 100 MG TABLET GT SCH ×2 (08:30→21:15)
[2022-04-19] MEDS: ASCORBIC ACID 500 MG TABLET GT SCH (08:30)
[2022-04-19] MEDS: VALPROIC ACID ORAL SYRUP 250 MG/5 ML UDC GT SCH ×2 (08:45→21:16)
[2022-04-19] MEDS: MUPIROCIN 2% TOPICAL OINTMENT 22 GM NS SCH ×2 (09:00→21:16)
[2022-04-19 10:49] LABS: CALCIUM 8.9 mg/dL (8.4-11.0); CREATININE 0.66 mg/dL (0.55-1.30)
[2022-04-19] MEDS: cefTRIAXone 1 GM IVPB PREMIX 50 ML IV SCH (11:49)
[2022-04-19] MEDS: D5/0.45 NS 1,000 ML IV SCH (13:46)
--- NOTE | 2022-04-19 14:34 | NUR ---
Patient accepted at [facility] [id number]. Number for report [phone]. [facility] is on [facility]
[2022-04-19] MEDS: LEVOFLOXACIN 250 MG/D5W 50 ML IV SCH (15:35)
[2022-04-19] MEDS ORDERED: D5W IV SCH (16:15)
[2022-04-19] MEDS ORDERED: AMIKACIN SULFATE IV SCH (16:15)
[2022-04-19] MEDS ORDERED: VANCOMYCIN HCL 750 MG in NS 250 ML IV SCH (18:00)
[2022-04-19] MEDS: traZODone HCL 50 MG TABLET (DESYREL) GT SCH (21:15)
[2022-04-20] MEDS: ALBUTEROL SULFATE 0.083% 2.5 MG/3 ML VIAL.NEB INH SCH ×4 (01:33→19:44)
[2022-04-20] MEDS: IPRATROPIUM BROM 0.5 MG/2.5 ML VIAL.NEB (ATROVENT) INH SCH ×4 (01:33→19:44)
[2022-04-20 07:54] LABS: BASOPHILS % (AUTO) 0.2 % (0.0-2.0); EOSINOPHILS # (AUTO) 0.1 K/uL (0.0-0.4); EOSINOPHILS % (AUTO) 0.4 % (0.0-4.0); HEMATOCRIT 30.6 % (36-54); HEMOGLOBIN 10.1 g/dL (14.0-18.0); LYMPHOCYTES # (AUTO) 1.3 K/uL (1.0-5.5); LYMPHOCYTES % (AUTO) 10.5 % (20.5-51.5); MEAN CORPUSCULAR HEMOGLOBIN 32 pg (27-31); MEAN CORPUSCULAR HGB CONC 33 % (32-36); MONOCYTES % (AUTO) 7.9 % (1.7-9.3); PLATELET COUNT (AUTO) 264 K/uL (130-430); RED BLOOD CELL COUNT(AUTO) 3.14 MIL/uL (4.2-6.2); RED CELL DISTRIBUTION WIDTH 14.8 % (9.0-15.0); WHITE BLOOD COUNT (AUTO) 12.4 K/uL (4.8-10.8)
[2022-04-20 08:00] VITALS: BP_SYST 148
[2022-04-20 08:16] LABS: MEAN CORPUSCULAR VOLUME 97 fL (79.0-98.0)
[2022-04-20] MEDS: QUEtiapine FUMARATE 100 MG TABLET GT SCH ×2 (08:30→21:45)
[2022-04-20] MEDS: ASCORBIC ACID 500 MG TABLET GT SCH (08:30)
[2022-04-20] MEDS: METOCLOPRAMIDE HCL 10 MG TABLET GT SCH ×2 (08:31→16:15)
[2022-04-20] MEDS: ATENOLOL 25 MG TABLET(TENORMIN) GT SCH (08:31)
[2022-04-20] MEDS: FLUCONAZOLE 100 MG TABLET (DIFLUCAN) PO SCH (08:31)
[2022-04-20] MEDS: MUPIROCIN 2% TOPICAL OINTMENT 22 GM NS SCH ×2 (08:32→21:46)
[2022-04-20] MEDS: FAMOTIDINE 20 MG TABLET GT SCH (08:32)
[2022-04-20] MEDS: FERROUS SULFATE 300 MG/5 ML UDC GT SCH (08:32)
[2022-04-20] MEDS: CALCIUM CARBONATE/VITAMIN D3 1 TAB TABLET GT SCH (08:32)
[2022-04-20 08:39] LABS: ALBUMIN 2.2 g/dL (3.4-4.8); CALCIUM 8.6 mg/dL (8.4-11.0); CREATININE 0.63 mg/dL (0.55-1.30); TOTAL BILIRUBIN 0.3 mg/dL (0.0-1.0)
[2022-04-20] MEDS: D5/0.45 NS 1,000 ML IV SCH (09:27)
[2022-04-20 11:39] VITALS: BP_SYST 124
[2022-04-20] MEDS: VALPROIC ACID ORAL SYRUP 250 MG/5 ML UDC GT SCH ×2 (12:28→21:45)
[2022-04-20] MEDS ORDERED: POTASSIUM CHLORIDE 20 MEQ/PKT PACKET PO ONE (12:30)
[2022-04-20 15:46] VITALS: BP_SYST 150
[2022-04-20] MEDS: LEVOFLOXACIN 250 MG/D5W 50 ML IV SCH (16:15)
--- NOTE | 2022-04-20 20:00 | NUR ---
RECIEVED PT FROM am NURSE. Pt remains restless, no s/s resp distress, no s/s pain or discomfort. IVF infusing well to DEEJAY at ordered rate with no s/s infiltration to site. G-tube has singer drainage bag draining to gravity. Pt ON JEVITY 1.5 @ 50 cc/hr. not using G. RT rounding for suctioning and breathing tx. Bilateral soft restraints in place. All precautions remain in place.
[2022-04-20 20:38] VITALS: BP_SYST 145
[2022-04-20 20:44] VITALS: BP_SYST 140
[2022-04-20] MEDS: traZODone HCL 50 MG TABLET (DESYREL) GT SCH (21:44)
[2022-04-21] MEDS: METOCLOPRAMIDE HCL 10 MG TABLET GT SCH ×3 (00:46→16:21)
[2022-04-21] MEDS: ALBUTEROL SULFATE 0.083% 2.5 MG/3 ML VIAL.NEB INH SCH ×4 (01:00→19:43)
[2022-04-21] MEDS: IPRATROPIUM BROM 0.5 MG/2.5 ML VIAL.NEB (ATROVENT) INH SCH ×4 (01:01→19:43)
[2022-04-21 02:14] VITALS: BP_SYST 125
[2022-04-21 06:47] LABS: EOSINOPHILS # (AUTO) 0.1 K/uL (0.0-0.4); EOSINOPHILS % (AUTO) 1.5 % (0.0-4.0); HEMATOCRIT 26.3 % (36-54); HEMOGLOBIN 8.7 g/dL (14.0-18.0); LYMPHOCYTES # (AUTO) 1.3 K/uL (1.0-5.5); LYMPHOCYTES % (AUTO) 15.3 % (20.5-51.5); MEAN CORPUSCULAR HEMOGLOBIN 32 pg (27-31); MEAN CORPUSCULAR HGB CONC 33 % (32-36); MEAN CORPUSCULAR VOLUME 97 fL (79.0-98.0); MONOCYTES # (AUTO) 0.9 K/uL (0.0-1.0); MONOCYTES % (AUTO) 10.6 % (1.7-9.3); NEUTROPHILS # (AUTO) 6.2 K/uL (1.8-7.7); NEUTROPHILS % (AUTO) 72.6 % (40.0-70.0); PLATELET COUNT (AUTO) 250 K/uL (130-430); RED BLOOD CELL COUNT(AUTO) 2.72 MIL/uL (4.2-6.2); RED CELL DISTRIBUTION WIDTH 14.7 % (9.0-15.0)
[2022-04-21 07:03] LABS: CALCIUM 8.7 mg/dL (8.4-11.0); CREATININE 0.52 mg/dL (0.55-1.30)
[2022-04-21 07:44] LABS: WHITE BLOOD COUNT (AUTO) 8.5 K/uL (4.8-10.8)
[2022-04-21 08:00] VITALS: BP_SYST 113
[2022-04-21] MEDS: ATENOLOL 25 MG TABLET(TENORMIN) GT SCH (09:00)
[2022-04-21] MEDS: CALCIUM CARBONATE/VITAMIN D3 1 TAB TABLET GT SCH (09:16)
[2022-04-21] MEDS: FAMOTIDINE 20 MG TABLET GT SCH (09:16)
[2022-04-21] MEDS: QUEtiapine FUMARATE 100 MG TABLET GT SCH ×2 (09:17→22:14)
[2022-04-21] MEDS: FLUCONAZOLE 100 MG TABLET (DIFLUCAN) PO SCH (09:17)
[2022-04-21] MEDS: FERROUS SULFATE 300 MG/5 ML UDC GT SCH (09:18)
[2022-04-21] MEDS: VALPROIC ACID ORAL SYRUP 250 MG/5 ML UDC GT SCH ×2 (09:18→22:14)
[2022-04-21] MEDS: ASCORBIC ACID 500 MG TABLET GT SCH (09:18)
[2022-04-21] MEDS: MUPIROCIN 2% TOPICAL OINTMENT 22 GM NS SCH ×2 (09:19→22:15)
[2022-04-21 11:55] VITALS: BP_SYST 103
[2022-04-21] MEDS: LEVOFLOXACIN 250 MG/D5W 50 ML IV SCH (15:00)
--- NOTE | 2022-04-21 15:10 | NUR ---
CONSULTATION PAGED/CALLED Reason for Consultation: COMPLEX PMN Person Who was Notified: ABBEY Consulting Physician: DR. STEVAN ROMERO Behavioral Health Worker Specialty: INFECTIOUS DISEASE Ordering Physician: DR. MATTHEWS
--- NOTE | 2022-04-21 17:42 | NUR ---
ATTEMPTED TO INSERT NEW IV SEVERAL TIMES. FAILED TO GET NEW IV STARTED. PATIENT OLD IV ON THE RIGHT UPPER ARM DISCONTINUED DUE TO INFILTERATION.
[2022-04-21 17:47] VITALS: BP_SYST 108
[2022-04-21 19:00] VITALS: BP_SYST 115
--- NOTE | 2022-04-21 19:15 | NUR ---
change of shift.pt.presents trach/vent;vent settings;tv;450,fio-2%:30%,a/c;14,peep;5.02-sat%=100%.pt.presents g/j-tube w feed;jevity;1.5 rate;50ml/hr.pt.presents restraints wrists bilateral in place.call light/telephone w/in access of the pt.
[2022-04-21 20:00] VITALS: BP_SYST 115
--- NOTE | 2022-04-21 20:00 | NUR ---
pt assessed.v/s assessed values wnl.trach intact oral/trach care/suction attended to.o2-sat%=98%.g/j tube intact. per flacc pain mgx pt.absent facial grimaces/body posturing.pt.assessed for cleanliness pt.repositioned. restraints wrist in place skin/circulation wnl.call light/telephone placed w/in access of the pt.
--- NOTE | 2022-04-21 21:00 | NUR ---
2100p medications administered via g/j-tube.g/j-tube flushed w/out resistance.g/j tube feed residuals assessed note: 10ml.
--- NOTE | 2022-04-21 22:00 | NUR ---
pt.assessed.trach intact oral care/suction attended to.02-sat%=98%.g/j tube intact.per flacc pain mgx pt.absent w facial grimaces/body posturing.pt.assessed for cleanliness.pt.repositioned.rerstraints in pace.skin/circulation.call light/telephone placed w/in access of the pt.
[2022-04-21] MEDS: traZODone HCL 50 MG TABLET (DESYREL) GT SCH (22:14)
--- NOTE | 2022-04-22 | NUR ---
pt.assessed.v/s assessed values wnl.trach intact oral/trach care/suction attended to.o2-sat%=98%.g/j tube intact.restraints wrist bilateral skin//circulation wnl.pt.assessed for cleanliness pt.repositioned.call light/telephone placed w/in access of the pt.
[2022-04-22] MEDS: METOCLOPRAMIDE HCL 10 MG TABLET GT SCH ×4 (01:15→23:29)
[2022-04-22] MEDS: D5/0.45 NS 1,000 ML IV SCH ×2 (01:27→23:22)
[2022-04-22] MEDS: IPRATROPIUM BROM 0.5 MG/2.5 ML VIAL.NEB (ATROVENT) INH SCH ×3 (01:35→20:38)
[2022-04-22] MEDS: ALBUTEROL SULFATE 0.083% 2.5 MG/3 ML VIAL.NEB INH SCH ×3 (01:35→20:37)
[2022-04-22 02:00] VITALS: BP_SYST 109
--- NOTE | 2022-04-22 02:00 | NUR ---
pt.assessed.trach intact oral/trach care/suction attended to.o2-sat%=98%.per flacc pain mgx pt.absent facial grimaces/ body posturing.pt.assessed for cleanliness pt.repositioned.restraints wrist bilateral in palce.skin /circulation wnl.call light/ telephone placed w/in access of the pt.
--- NOTE | 2022-04-22 04:00 | NUR ---
pt.assessed.trach intact.oral care/suction attended to.o2-sat%=98%.per flacc pain mgx pt.absent facial grimaces/body posturing.g/j tube intact.pt.assessed for cleanliness pt.repositioned.restraints wrist bilateral intact skin/circulation wnl. call light/telephone w/in access of the pt.
--- NOTE | 2022-04-22 08:00 | NUR ---
Initial notes Received patient awake in bed, restless, Vent trach settings. IV to DEEJAY, infusimg well. J-G tube intact. King catheter draining clear yellow urine. Reposition as need, call light w/reached
[2022-04-22 08:50] VITALS: BP_SYST 112
[2022-04-22] MEDS: MUPIROCIN 2% TOPICAL OINTMENT 22 GM NS SCH ×2 (09:00→21:33)
[2022-04-22] MEDS: FAMOTIDINE 20 MG TABLET GT SCH (10:12)
[2022-04-22] MEDS: QUEtiapine FUMARATE 100 MG TABLET GT SCH ×2 (10:12→21:33)
[2022-04-22] MEDS: FERROUS SULFATE 300 MG/5 ML UDC GT SCH (10:12)
[2022-04-22] MEDS: FLUCONAZOLE 100 MG TABLET (DIFLUCAN) PO SCH (10:14)
[2022-04-22] MEDS: CALCIUM CARBONATE/VITAMIN D3 1 TAB TABLET GT SCH (10:14)
[2022-04-22] MEDS: ASCORBIC ACID 500 MG TABLET GT SCH (10:14)
[2022-04-22] MEDS: ATENOLOL 25 MG TABLET(TENORMIN) GT SCH (10:14)
[2022-04-22] MEDS: VALPROIC ACID ORAL SYRUP 250 MG/5 ML UDC GT SCH ×2 (10:17→21:34)
--- NOTE | 2022-04-22 11:07 | NUR ---
Nutrition F/U RD reviewed pts current EMR including diet hx, physician notes, nursing notes, pertinent labs/meds/procedures, care trends and care activity. Short note d/t high workload Subjective Information Per LOS 04/22, pt will be DC today. Per EMR review: pt abd soft, distended w/ hypoactive bowel sounds; 0mL GRV on 04/20. Pt is likely meeting nutritional needs at this time. Current Diet Order/Nutrition Support Jevity 1.5 @ 50mL/hr, FWF 150mL q6h via JT x 5 days Provides: 1800 kcal, 77 g PRO, 1512 mL free water (inc FWF) Meets:97% of upper est kcal, 80% of upper PRO, and 100% of lower est fluid needs % PO intake NPO Last BM 04/20 x 4 Estimated Energy Expenditure (kcals/day) 1884-4927 kcal (30-35 kcal/kg CBW d/t sepsis) Estimated Protein Required (g/day) 69- 96g (1.3-1.8 g/kg CBW d/t sepsis) Estimated Fluid Required (l/day) 1.5-1.8L (1mL/kcal maintenance) Problem/Etiology/Signs/Symptoms * Complicated GI function R/T G/J tube AEB leaking tube/ redness at site (resolved) Expected Outcomes/Goals EN tolerated at goal rate, EN provides >95% estimated nutritional needs, improvements in skin integrity, nutrition-related labs trending WNL, weight maintenance, BM q 1-3 days Dietitian Recommendations * Continue Jevity 1.5 @ 50 mL/ hr (goal); FWF of 150mL Q6H via JT Provides: 1800 kcal, 77 g PRO, 912 mL free water Meets:97% of upper est kcal, 80% of upper PRO, and 100% of lower est fluid * Consider Banatrol BID, if loose bowels continue Follow up *Moderate Risk: f/u in 3-5 days GS, MPH, RD
--- NOTE | 2022-04-22 11:08 | NUR ---
Dietitian Recommendations * Continue Jevity 1.5 @ 50 mL/ hr (goal); FWF of 150mL Q6H via JT Provides: 1800 kcal, 77 g PRO, 912 mL free water Meets:97% of upper est kcal, 80% of upper PRO, and 100% of lower est fluid * Consider Banatrol BID, if loose bowels continue GS, MPH, RD Please refer to Nutrition F/U for further details. Thanks!
[2022-04-22 12:10] VITALS: BP_SYST 107
[2022-04-22 13:18] VITALS: BP_SYST 112
--- NOTE | 2022-04-22 13:28 | NUR ---
Report given to Mara at [facility]
--- NOTE | 2022-04-22 14:14 | NUR ---
No discharge order, Paged Dr. Chavez, states to paged Dr. Underwood, Dr. Underwood states "patient not cleared for discharged"
--- NOTE | 2022-04-22 16:21 | NUR ---
CM: spoke with dr. Underwood , he okayed to dc pt with antibiotics IV and PO order. Informed dr. Matthew approved the discharge as well per his progress note. The final dc order is pending from dr Gage. MARY Son made aware
[2022-04-22 16:45] VITALS: BP_SYST 98
[2022-04-22] MEDS: LEVOFLOXACIN 250 MG/D5W 50 ML IV SCH (17:20)
--- NOTE | 2022-04-22 18:38 | NUR ---
Closing Patient restless throughout shift , no signs of distress, will endorse
[2022-04-22 20:00] VITALS: BP_SYST 95
[2022-04-22] MEDS: traZODone HCL 50 MG TABLET (DESYREL) GT SCH (21:34)
[2022-04-23] VITALS: BP_SYST 98
[2022-04-23] MEDS: IPRATROPIUM BROM 0.5 MG/2.5 ML VIAL.NEB (ATROVENT) INH SCH ×3 (01:08→16:37)
[2022-04-23] MEDS: ALBUTEROL SULFATE 0.083% 2.5 MG/3 ML VIAL.NEB INH SCH ×3 (01:08→16:36)
[2022-04-23 08:11] VITALS: BP_SYST 114
[2022-04-23] MEDS: FERROUS SULFATE 300 MG/5 ML UDC GT SCH (08:27)
[2022-04-23] MEDS: CALCIUM CARBONATE/VITAMIN D3 1 TAB TABLET GT SCH (08:27)
[2022-04-23] MEDS: ASCORBIC ACID 500 MG TABLET GT SCH (08:27)
[2022-04-23] MEDS: FAMOTIDINE 20 MG TABLET GT SCH (08:28)
[2022-04-23] MEDS: FLUCONAZOLE 100 MG TABLET (DIFLUCAN) PO SCH (08:28)
[2022-04-23] MEDS: QUEtiapine FUMARATE 100 MG TABLET GT SCH (08:28)
[2022-04-23] MEDS: ATENOLOL 25 MG TABLET(TENORMIN) GT SCH (08:28)
[2022-04-23] MEDS: MUPIROCIN 2% TOPICAL OINTMENT 22 GM NS SCH (08:29)
[2022-04-23] MEDS: VALPROIC ACID ORAL SYRUP 250 MG/5 ML UDC GT SCH (08:29)
[2022-04-23] MEDS: METOCLOPRAMIDE HCL 10 MG TABLET GT SCH (08:30)
[2022-04-23 11:54] VITALS: BP_SYST 121
[2022-04-23] MEDS ORDERED: D5W IV SCH (14:00)
[2022-04-23] MEDS ORDERED: AMIKACIN SULFATE IV SCH (14:00)
[2022-04-23] MEDS: LEVOFLOXACIN 250 MG/D5W 50 ML IV SCH (14:18)
--- NOTE | 2022-04-23 15:20 | NUR ---
D/C Patient back to [facility] by [facility]. Patient was awake, confused, and non verbal in no acute distress. Patient is on trach to vent w/ setting of AC 14; TV 450; FIO2 30%. Report's given to one EMT. All documents and discharge instructions given to the EMT. Exit Care provided. discussed with patient the results and treatment provided. Patient in stable condition, ID band removed. IV access to R wrist, intact and patent with no s/s of infection. All belongings sent with patient. VSS. BP 117/58; HR 67; RR 18; O2 sat 99 % on Trach to vent. No s/s of pain or discomfort.
--- NOTE | 2022-04-23 22:52 | NUR ---
CHART OPENED AND REPRINTED DISCHARGE INSTRUCTION , PRITESH HERNANDEZ FROM [facility] CALLED AND SATED THEY DIDNT RECEIVED ANY DISCHARGE PAPERWORK AND REQUESTED TO FAX THE PAPERS ON [phone] , I PRINTED PAPERS AND REQUESTED U.S TO FAX PAPERS
== END 2022-04-23 15:20 | DRG 720 ==
LOC: SED 12:56 → STU 17:38
PROVIDERS: ADMIT Internal Medicine; ATTEND Internal Medicine
PROC: 5A1955Z Respiratory Ventilation, Greater than 96 Consecutive Hours (ICD-10-PCS; 2022-04-15)
PROC: 0DHA8UZ Insertion of Feeding Device into Jejunum, Via Natural or Artificial Opening Endoscopic (ICD-10-PCS; 2022-04-17)
PROC: 0DPDXUZ Removal of Feeding Device from Lower Intestinal Tract, External Approach (ICD-10-PCS; principal; 2022-04-17 07:30)
DX: A41.9 Sepsis, unspecified organism (principal); J18.9 Pneumonia, unspecified organism; K31.6 Fistula of stomach and duodenum; J96.10 Chronic respiratory failure, unspecified whether with hypoxia or hypercapnia; Z99.11 Dependence on respirator [ventilator] status; K94.13 Enterostomy malfunction; K94.23 Gastrostomy malfunction; F03.90 Unspecified dementia, unspecified severity, without behavioral disturbance, psychotic disturbance, mood disturbance, and anxiety; Z20.822 Contact with and (suspected) exposure to COVID-19; R13.10 Dysphagia, unspecified; G40.909 Epilepsy, unspecified, not intractable, without status epilepticus; R62.50 Unspecified lack of expected normal physiological development in childhood; L89.90 Pressure ulcer of unspecified site, unspecified stage; E11.9 Type 2 diabetes mellitus without complications; Z74.01 Bed confinement status
CPT/HCPCS: 36415; 71045; 74018; 76700-TC; 80048; 80053; 80150; 80202; 83735; 85025; 85610-TC; 85730-TC; 87040; 87070-TC; 87081; 87086; 87205-TC; 94002; 94003; 94640; 94760; 99285; G0378; J0278; J0696; J1956; J2250; J3010; J3370; J7050; J7060; J7613; J8597; Q9964

== ENCOUNTER 2022-10-27 02:26 | Emergency (ER) | payer OTHER, MEDICAID ==
[~2022-10-27] VITALS: Ht 165.1 cm; Wt 36.3 kg
[~2022-10-27 02:26] MED LIST changes: -LORA-258 GT
[2022-10-27 02:38] VITALS: BP_SYST 129; PULSE 81; RESP 20; TEMP 98.1; O2SAT 98
[2022-10-27] MEDS ORDERED: GASTROGRAFIN 120 ML ONE (02:41)
[2022-10-27 02:45] VITALS: BP_SYST 125; RESP 18; TEMP 98.2; O2SAT 97
== END 2022-10-27 03:04 | disposition home or self-care (01) ==
LOC: SED 02:26
DX: K94.23 Gastrostomy malfunction (principal); J44.9 Chronic obstructive pulmonary disease, unspecified; I10 Essential (primary) hypertension; Z79.899 Other long term (current) drug therapy
CPT/HCPCS: 99284; 43762; 74240; Q9963

== ENCOUNTER 2023-01-17 13:49 | Inpatient (IN) | payer MEDICAID, OTHER ==
[~2023-01-17] VITALS: Ht 177.8 cm; Wt 47.2 kg
[2023-01-17] VITALS (9 sets, daily range): BP systolic 97–129; PULSE 60–82; RESP 14–24; TEMP 97.1–98; O2SAT 95–100
[2023-01-17 15:07] LABS: HEMATOCRIT 33.9 % (36-54); MEAN CORPUSCULAR HEMOGLOBIN 31 pg (27-31); MEAN CORPUSCULAR HGB CONC 32 % (32-36); MEAN CORPUSCULAR VOLUME 95 fL (79.0-98.0); PLATELET COUNT (AUTO) 313 K/uL (130-430); RED BLOOD CELL COUNT(AUTO) 3.57 MIL/uL (4.2-6.2); RED CELL DISTRIBUTION WIDTH 13.6 % (9.0-15.0); WHITE BLOOD COUNT (AUTO) 22.9 K/uL (4.8-10.8)
[2023-01-17 15:21] LABS: BAND % (MANUAL) 11 % (0-6); BASOPHILS % (MANUAL) 0 % (0-2); CALCIUM 9.8 mg/dL (8.4-11.0); CREATININE 0.84 mg/dL (0.55-1.30); EOSINOPHILS % (MANUAL) 0 % (0-7); LYMPHOCYTES % (MANUAL) 4 % (20-46); MONOCYTES % (MANUAL) 4 % (0-11); POTASSIUM 3.9 mmol/L (3.5-5.1)
[2023-01-17 15:22] LABS: PLATELET ESTIMATE ADEQUATE (ADEQUATE)
[2023-01-17 15:23] LABS: PROTHROMBIN TIME 10.6 SECS (9.5-12.5)
[2023-01-17 15:25] LABS: ALBUMIN 2.6 g/dL (3.4-4.8); TOTAL BILIRUBIN 0.3 mg/dL (0.0-1.0); TOTAL PROTEIN, SERUM 7.6 g/dL (6.4-8.3)
[2023-01-17] MEDS ORDERED: PIPERACILLIN/TAZO 4.5GM/DEX-IS 100 ML IV SCH (15:45)
[2023-01-17] MEDS ORDERED: ONDANSETRON HCL 4 MG/2 ML VIAL IVP PRN (15:45)
[2023-01-17] MEDS ORDERED: D5/0.45 NS 1,000 ML IV SCH (15:45)
[2023-01-17] MEDS ORDERED: IPRATROPIUM/ALBUTEROL SULFATE 3 ML AMPUL.NEB (DUONEB) ONE (15:55)
[2023-01-17] MEDS ORDERED: IPRATROPIUM/ALBUTEROL SULFATE 3 ML AMPUL.NEB (DUONEB) INH ONE (16:00)
[2023-01-17] MEDS ORDERED: PIPERACILLIN/TAZO 3.375 GM in NS 50 ML IV ONE (16:00)
[2023-01-17] MEDS ORDERED: PIPERACILLIN/TAZO 4.5GM/DEX-IS 100 ML IV ONE (16:03)
[2023-01-17] MEDS ORDERED: VANCOMYCIN HCL 750 MG in NS 250 ML IV ONE (16:30)
[2023-01-17] MEDS: D5NS 1,000 ML IV SCH (17:02)
[2023-01-17] MEDS ORDERED: SENN-22 GT (18:18)
[2023-01-17] MEDS ORDERED: LORA-258 PO (18:18)
[2023-01-17] MEDS ORDERED: MAGN24002 PO (18:18)
[2023-01-17] MEDS ORDERED: ENZY1CAP5 PO (18:18)
[2023-01-17] MEDS ORDERED: OSC500 GT (18:18)
[2023-01-17] MEDS ORDERED: AMIN30LI2 PO (18:18)
[2023-01-17] MEDS ORDERED: QUET50TA GT (18:18)
[2023-01-17] MEDS ORDERED: PIPERACILLIN/TAZOBACTAM 4.5 GM/VIAL (ZOSYN) IV ONE (21:36)
[2023-01-17] MEDS: PIPERACILLIN/TAZO 4.5 GM in NS 100 ML IV SCH (21:45)
[2023-01-17] MEDS: PANTOPRAZOLE SODIUM 40 MG/VIAL (PROTONIX) IVP SCH (21:45)
[2023-01-17] MEDS: levETIRAcetam 500 MG IV PREMIX 100 ML IV SCH (21:46)
[2023-01-18] VITALS (37 sets, daily range): BP systolic 79–122; PULSE 51–82; RESP 14–22; TEMP 96.8–98.4; O2SAT 97–100
[2023-01-18] MEDS: PIPERACILLIN/TAZO 4.5 GM in NS 100 ML IV SCH ×3 (05:05→21:34)
[2023-01-18 05:37] LABS: BASOPHILS % (AUTO) 0.1 % (0.0-2.0); EOSINOPHILS % (AUTO) 0.2 % (0.0-4.0); HEMATOCRIT 27.9 % (36-54); LYMPHOCYTES # (AUTO) 1.2 K/uL (1.0-5.5); LYMPHOCYTES % (AUTO) 10.3 % (20.5-51.5); MEAN CORPUSCULAR HEMOGLOBIN 31 pg (27-31); MEAN CORPUSCULAR HGB CONC 32 % (32-36); MEAN CORPUSCULAR VOLUME 95 fL (79.0-98.0); MONOCYTES # (AUTO) 1.1 K/uL (0.0-1.0); MONOCYTES % (AUTO) 9.1 % (1.7-9.3); NEUTROPHILS # (AUTO) 9.6 K/uL (1.8-7.7); NEUTROPHILS % (AUTO) 80.3 % (40.0-70.0); PLATELET COUNT (AUTO) 245 K/uL (130-430); RED BLOOD CELL COUNT(AUTO) 2.96 MIL/uL (4.2-6.2); WHITE BLOOD COUNT (AUTO) 11.9 K/uL (4.8-10.8)
[2023-01-18 06:12] LABS: BILIRUBIN,URINE NEGATIVE (NEGATIVE); CLARITY/URINE CLEAR (CLEAR); COLOR,URINE YELLOW (YELLOW); GLUCOSE,URINE NEGATIVE (NEGATIVE); KETONES,URINE NEGATIVE (NEGATIVE); LEUKOCYTE ESTERASE ,URINE 1+ (NEGATIVE); NITRITE, URINE NEGATIVE (NEGATIVE); PROTEIN URINE NEGATIVE (NEGATIVE); UROBILINOGEN,URINE 0.2 (0.2-1.0)
[2023-01-18] MEDS: D5NS 1,000 ML IV SCH ×3 (06:18→22:31)
[2023-01-18 06:26] LABS: BLOOD, URINE TRACE (NEGATIVE)
[2023-01-18 06:29] LABS: BACTERIA,URINE FEW /HPF (None Seen)
[2023-01-18 06:53] LABS: ALBUMIN 2.2 g/dL (3.4-4.8); CALCIUM 9.1 mg/dL (8.4-11.0); CREATININE 0.89 mg/dL (0.55-1.30); POTASSIUM 3.6 mmol/L (3.5-5.1); TOTAL BILIRUBIN 0.4 mg/dL (0.0-1.0); TOTAL PROTEIN, SERUM 6.4 g/dL (6.4-8.3)
[2023-01-18] MEDS: PANTOPRAZOLE SODIUM 40 MG/VIAL (PROTONIX) IVP SCH ×2 (09:14→21:33)
[2023-01-18] MEDS: levETIRAcetam 500 MG IV PREMIX 100 ML IV SCH (09:14)
[2023-01-18] MEDS ORDERED: ACETAMINOPHEN 650 MG/20.3 ML UDC GT PRN ×2 (11:45)
[2023-01-18] MEDS: IPRATROPIUM/ALBUTEROL SULFATE 3 ML AMPUL.NEB (DUONEB) INH SCH ×2 (19:32→23:19)
[2023-01-19] VITALS (34 sets, daily range): BP systolic 88–155; PULSE 54–79; RESP 11–22; TEMP 97.3–98.2; O2SAT 94–100
[2023-01-19] MEDS: IPRATROPIUM/ALBUTEROL SULFATE 3 ML AMPUL.NEB (DUONEB) INH SCH ×5 (03:39→19:27)
[2023-01-19 06:00] LABS: BASOPHILS % (AUTO) 0.2 % (0.0-2.0); EOSINOPHILS # (AUTO) 0.1 K/uL (0.0-0.4); HEMATOCRIT 27.3 % (36-54); HEMOGLOBIN 8.9 g/dL (14.0-18.0); LYMPHOCYTES % (AUTO) 16.2 % (20.5-51.5); MEAN CORPUSCULAR HEMOGLOBIN 31 pg (27-31); MEAN CORPUSCULAR HGB CONC 32 % (32-36); MEAN CORPUSCULAR VOLUME 96 fL (79.0-98.0); MONOCYTES # (AUTO) 0.7 K/uL (0.0-1.0); NEUTROPHILS # (AUTO) 4.2 K/uL (1.8-7.7); NEUTROPHILS % (AUTO) 70.6 % (40.0-70.0); PLATELET COUNT (AUTO) 209 K/uL (130-430); RED BLOOD CELL COUNT(AUTO) 2.86 MIL/uL (4.2-6.2); RED CELL DISTRIBUTION WIDTH 13.4 % (9.0-15.0); WHITE BLOOD COUNT (AUTO) 5.9 K/uL (4.8-10.8)
[2023-01-19 06:12] LABS: CALCIUM 8.7 mg/dL (8.4-11.0); CREATININE 0.9 mg/dL (0.55-1.30); POTASSIUM 3.3 mmol/L (3.5-5.1)
[2023-01-19] MEDS: PIPERACILLIN/TAZO 4.5 GM in NS 100 ML IV SCH ×3 (06:21→21:44)
[2023-01-19] MEDS: POLYETHYLENE GLYCOL 3350, 17 GM/ POWD.PACK JT SCH (08:07)
[2023-01-19] MEDS: PANTOPRAZOLE SODIUM 40 MG/VIAL (PROTONIX) IVP SCH ×2 (08:07→21:42)
[2023-01-19] MEDS ORDERED: POTASSIUM CHLORIDE 20 MEQ/PKT PACKET PO ONE (11:15)
[2023-01-19] MEDS ORDERED: THEOPHYLLINE ANHYDROUS 200 MG CAP.ER.24H PO SCH (14:30)
[2023-01-19] MEDS ORDERED: THEOPHYLLINE ANHYDROUS 80 MG/15 ML UDC PO ONE (14:30)
[2023-01-19] MEDS: D5NS 1,000 ML IV SCH (14:33)
[2023-01-19] MEDS: THEOPHYLLINE ANHYDROUS 80 MG/15 ML UDC PO SCH (21:41)
[2023-01-20] VITALS (27 sets, daily range): BP systolic 87–166; PULSE 64–95; RESP 14–30; TEMP 97–97.3; O2SAT 97–100
[2023-01-20] MEDS: D5NS 1,000 ML IV SCH ×2 (01:40→15:18)
[2023-01-20] MEDS: IPRATROPIUM/ALBUTEROL SULFATE 3 ML AMPUL.NEB (DUONEB) INH SCH ×7 (03:12→23:05)
[2023-01-20] MEDS ORDERED: MILK OF MAGNESIA 30 ML UDC JT ONE (07:15)
[2023-01-20] MEDS: PIPERACILLIN/TAZO 4.5 GM in NS 100 ML IV SCH ×3 (08:04→22:32)
[2023-01-20] MEDS: POLYETHYLENE GLYCOL 3350, 17 GM/ POWD.PACK JT SCH (08:04)
[2023-01-20] MEDS: PANTOPRAZOLE SODIUM 40 MG/VIAL (PROTONIX) IVP SCH ×2 (08:05→22:32)
[2023-01-20] MEDS: THEOPHYLLINE ANHYDROUS 80 MG/15 ML UDC PO SCH ×2 (08:06→22:31)
[2023-01-20] MEDS ORDERED: SODIUM PHOSPHATE,MONO-DIBASIC 133 ML ENEMA RC ONE (13:00)
[2023-01-21] VITALS (18 sets, daily range): BP systolic 102–133; PULSE 64–122; RESP 16–22; TEMP 97.3–99; O2SAT 96–98
[2023-01-21] MEDS: IPRATROPIUM/ALBUTEROL SULFATE 3 ML AMPUL.NEB (DUONEB) INH SCH ×6 (02:31→23:19)
[2023-01-21 05:27] LABS: INR 1.1 (0.80-1.20); PROTHROMBIN TIME 11.3 SECS (9.5-12.5)
[2023-01-21] MEDS: PIPERACILLIN/TAZO 4.5 GM in NS 100 ML IV SCH (05:59)
[2023-01-21] MEDS ORDERED: fentaNYL CITRATE/PF 100 MCG/2 ML AMP ONE (07:53)
[2023-01-21] MEDS ORDERED: MIDAZOLAM HCL 5 MG/5 ML VIAL ONE (07:54)
[2023-01-21] MEDS ORDERED: SIMETHICONE 40 MG/0.6 ML ML ONE (07:55)
[2023-01-21] MEDS: D5NS 1,000 ML IV SCH ×2 (07:58→14:44)
[2023-01-21 08:02] LABS: BASOPHILS % (AUTO) 0.4 % (0.0-2.0); EOSINOPHILS # (AUTO) 0.1 K/uL (0.0-0.4); HEMATOCRIT 31.9 % (36-54); LYMPHOCYTES # (AUTO) 1.1 K/uL (1.0-5.5); LYMPHOCYTES % (AUTO) 10.7 % (20.5-51.5); MEAN CORPUSCULAR HEMOGLOBIN 31 pg (27-31); MEAN CORPUSCULAR HGB CONC 32 % (32-36); MEAN CORPUSCULAR VOLUME 97 fL (79.0-98.0); MONOCYTES # (AUTO) 0.9 K/uL (0.0-1.0); MONOCYTES % (AUTO) 8.1 % (1.7-9.3); NEUTROPHILS # (AUTO) 8.4 K/uL (1.8-7.7); NEUTROPHILS % (AUTO) 79.8 % (40.0-70.0); PLATELET COUNT (AUTO) 304 K/uL (130-430); RED CELL DISTRIBUTION WIDTH 13.3 % (9.0-15.0); WHITE BLOOD COUNT (AUTO) 10.5 K/uL (4.8-10.8)
[2023-01-21] MEDS: POLYETHYLENE GLYCOL 3350, 17 GM/ POWD.PACK JT SCH (09:00)
[2023-01-21] MEDS: THEOPHYLLINE ANHYDROUS 80 MG/15 ML UDC PO SCH ×3 (09:00→22:06)
[2023-01-21] MEDS: PANTOPRAZOLE SODIUM 40 MG/VIAL (PROTONIX) IVP SCH ×2 (09:23→22:07)
[2023-01-22] VITALS (17 sets, daily range): BP systolic 97–140; PULSE 66–102; RESP 14–26; TEMP 97.4–98.9; O2SAT 96–100
[2023-01-22] MEDS: IPRATROPIUM/ALBUTEROL SULFATE 3 ML AMPUL.NEB (DUONEB) INH SCH ×6 (03:43→23:11)
[2023-01-22] MEDS: POLYETHYLENE GLYCOL 3350, 17 GM/ POWD.PACK JT SCH (09:03)
[2023-01-22] MEDS: PANTOPRAZOLE SODIUM 40 MG/VIAL (PROTONIX) IVP SCH ×2 (09:03→21:26)
[2023-01-22] MEDS: THEOPHYLLINE ANHYDROUS 80 MG/15 ML UDC PO SCH ×2 (09:06→21:00)
[2023-01-22] MEDS ORDERED: hydrALAZINE HCL 20 MG/ML VIAL IVP PRN (11:30)
[2023-01-22] MEDS: LORazepam 2 MG/ML VIAL IVP PRN ×2 (12:28→23:17)
[2023-01-22] MEDS: levETIRAcetam 500 MG in NS 100 ML IV SCH ×2 (12:37→20:07)
[2023-01-22] MEDS: D5NS 1,000 ML IV SCH (18:57)
[2023-01-23] VITALS (18 sets, daily range): BP systolic 114–172; PULSE 54–89; RESP 14–16; TEMP 97.4–97.9; O2SAT 94–100
[2023-01-23] MEDS: IPRATROPIUM/ALBUTEROL SULFATE 3 ML AMPUL.NEB (DUONEB) INH SCH ×6 (03:37→23:50)
[2023-01-23 06:02] LABS: BASOPHILS % (AUTO) 0.3 % (0.0-2.0); EOSINOPHILS # (AUTO) 0.4 K/uL (0.0-0.4); EOSINOPHILS % (AUTO) 5.9 % (0.0-4.0); HEMATOCRIT 32.5 % (36-54); HEMOGLOBIN 10.4 g/dL (14.0-18.0); LYMPHOCYTES # (AUTO) 1.5 K/uL (1.0-5.5); LYMPHOCYTES % (AUTO) 21.9 % (20.5-51.5); MEAN CORPUSCULAR HEMOGLOBIN 31 pg (27-31); MEAN CORPUSCULAR HGB CONC 32 % (32-36); MEAN CORPUSCULAR VOLUME 96 fL (79.0-98.0); MONOCYTES # (AUTO) 0.7 K/uL (0.0-1.0); MONOCYTES % (AUTO) 10.4 % (1.7-9.3); NEUTROPHILS # (AUTO) 4.1 K/uL (1.8-7.7); NEUTROPHILS % (AUTO) 61.5 % (40.0-70.0); PLATELET COUNT (AUTO) 318 K/uL (130-430); RED BLOOD CELL COUNT(AUTO) 3.39 MIL/uL (4.2-6.2); RED CELL DISTRIBUTION WIDTH 13.3 % (9.0-15.0); WHITE BLOOD COUNT (AUTO) 6.7 K/uL (4.8-10.8)
[2023-01-23 06:37] LABS: ALBUMIN 2.5 g/dL (3.4-4.8); CALCIUM 9.2 mg/dL (8.4-11.0); CREATININE 0.79 mg/dL (0.55-1.30); TOTAL BILIRUBIN 0.5 mg/dL (0.0-1.0); TOTAL PROTEIN, SERUM 7.2 g/dL (6.4-8.3)
[2023-01-23] MEDS: D5NS 1,000 ML IV SCH ×2 (09:58→23:28)
[2023-01-23] MEDS: levETIRAcetam 500 MG in NS 100 ML IV SCH ×2 (11:29→23:28)
[2023-01-23] MEDS: POLYETHYLENE GLYCOL 3350, 17 GM/ POWD.PACK JT SCH (11:30)
[2023-01-23] MEDS: PANTOPRAZOLE SODIUM 40 MG/VIAL (PROTONIX) IVP SCH ×2 (11:30→23:29)
[2023-01-23] MEDS: THEOPHYLLINE ANHYDROUS 80 MG/15 ML UDC PO SCH ×2 (11:33→21:00)
[2023-01-23] MEDS: LORazepam 2 MG/ML VIAL IVP PRN (11:56)
[2023-01-23] MEDS ORDERED: KCL 20 mEq in 100 mL (PREMIX) 100 ML IV ONE (23:45)
[2023-01-24] VITALS (17 sets, daily range): BP systolic 119–129; PULSE 65–86; RESP 16–28; TEMP 96.8–98.4; O2SAT 97–100
[2023-01-24] MEDS ORDERED: KCL 20 mEq in 100 mL (PREMIX) 100 ML IV ONE ×2 (01:45→03:45)
[2023-01-24] MEDS: IPRATROPIUM/ALBUTEROL SULFATE 3 ML AMPUL.NEB (DUONEB) INH SCH ×6 (03:53→23:21)
[2023-01-24] MEDS: POLYETHYLENE GLYCOL 3350, 17 GM/ POWD.PACK JT SCH (09:00)
[2023-01-24] MEDS: THEOPHYLLINE ANHYDROUS 80 MG/15 ML UDC PO SCH ×2 (09:00→20:48)
[2023-01-24] MEDS ORDERED: MIDAZOLAM HCL 5 MG/5 ML VIAL ONE (10:05)
[2023-01-24] MEDS ORDERED: fentaNYL CITRATE/PF 100 MCG/2 ML AMP ONE (10:05)
[2023-01-24] MEDS: PANTOPRAZOLE SODIUM 40 MG/VIAL (PROTONIX) IVP SCH ×2 (10:11→20:48)
[2023-01-24] MEDS: levETIRAcetam 500 MG in NS 100 ML IV SCH ×2 (10:13→20:48)
[2023-01-24] MEDS: D5NS 1,000 ML IV SCH (18:35)
[2023-01-25] VITALS (16 sets, daily range): BP systolic 98–147; PULSE 83–99; RESP 14–20; TEMP 97.8–98.9; O2SAT 93–100
[2023-01-25] MEDS: IPRATROPIUM/ALBUTEROL SULFATE 3 ML AMPUL.NEB (DUONEB) INH SCH ×6 (03:28→23:29)
[2023-01-25 07:11] LABS: ALBUMIN 2.3 g/dL (3.4-4.8); CALCIUM 8.7 mg/dL (8.4-11.0); CREATININE 0.68 mg/dL (0.55-1.30); TOTAL BILIRUBIN 0.3 mg/dL (0.0-1.0); TOTAL PROTEIN, SERUM 6.4 g/dL (6.4-8.3)
[2023-01-25] MEDS: levETIRAcetam 500 MG in NS 100 ML IV SCH ×2 (09:00→09:48)
[2023-01-25] MEDS: POLYETHYLENE GLYCOL 3350, 17 GM/ POWD.PACK JT SCH (09:47)
[2023-01-25] MEDS: THEOPHYLLINE ANHYDROUS 80 MG/15 ML UDC PO SCH ×2 (09:48→20:46)
[2023-01-25] MEDS: PANTOPRAZOLE SODIUM 40 MG/VIAL (PROTONIX) IVP SCH ×2 (09:49→20:46)
[2023-01-25] MEDS: D5NS 1,000 ML IV SCH ×2 (10:27→11:58)
[2023-01-25] MEDS ORDERED: LevETIRAcetam 500 MG/5 ML UDC ORAL LIQUID GT ONE (14:00)
[2023-01-25] MEDS ORDERED: POTASSIUM CHLORIDE 20 MEQ/PKT PACKET PO ONE (14:30)
[2023-01-25] MEDS: POTASSIUM CHLORIDE 20 MEQ/PKT PACKET PO SCH (20:46)
[2023-01-25] MEDS: LevETIRAcetam 500 MG/5 ML UDC ORAL LIQUID GT SCH (20:48)
[2023-01-25] MEDS: LORazepam 2 MG/ML VIAL IVP PRN (21:37)
[2023-01-26] VITALS (19 sets, daily range): BP systolic 98–147; PULSE 71–104; RESP 14–16; TEMP 97.4–98.4; O2SAT 92–100
[2023-01-26] MEDS: IPRATROPIUM/ALBUTEROL SULFATE 3 ML AMPUL.NEB (DUONEB) INH SCH ×6 (03:29→23:21)
[2023-01-26] MEDS: LORazepam 2 MG/ML VIAL IVP PRN (04:46)
[2023-01-26 07:14] LABS: CALCIUM 8.8 mg/dL (8.4-11.0); CREATININE 0.69 mg/dL (0.55-1.30); POTASSIUM 3.4 mmol/L (3.5-5.1)
[2023-01-26 07:50] LABS: BASOPHILS # (AUTO) 0.1 K/uL (0.0-0.2); BASOPHILS % (AUTO) 1.5 % (0.0-2.0); EOSINOPHILS # (AUTO) 0.4 K/uL (0.0-0.4); EOSINOPHILS % (AUTO) 4.3 % (0.0-4.0); HEMATOCRIT 28.5 % (36-54); HEMOGLOBIN 9.3 g/dL (14.0-18.0); LYMPHOCYTES # (AUTO) 1.2 K/uL (1.0-5.5); LYMPHOCYTES % (AUTO) 12.6 % (20.5-51.5); MEAN CORPUSCULAR HEMOGLOBIN 31 pg (27-31); MEAN CORPUSCULAR HGB CONC 33 % (32-36); MEAN CORPUSCULAR VOLUME 95 fL (79.0-98.0); MONOCYTES # (AUTO) 0.8 K/uL (0.0-1.0); MONOCYTES % (AUTO) 8.2 % (1.7-9.3); NEUTROPHILS # (AUTO) 6.8 K/uL (1.8-7.7); NEUTROPHILS % (AUTO) 73.4 % (40.0-70.0); PLATELET COUNT (AUTO) 305 K/uL (130-430); RED CELL DISTRIBUTION WIDTH 13.7 % (9.0-15.0); WHITE BLOOD COUNT (AUTO) 9.3 K/uL (4.8-10.8)
[2023-01-26] MEDS: POLYETHYLENE GLYCOL 3350, 17 GM/ POWD.PACK JT SCH (09:00)
[2023-01-26] MEDS: POTASSIUM CHLORIDE 20 MEQ/PKT PACKET PO SCH ×2 (09:45→21:28)
[2023-01-26] MEDS: PANTOPRAZOLE SODIUM 40 MG/VIAL (PROTONIX) IVP SCH ×2 (09:45→21:29)
[2023-01-26] MEDS: THEOPHYLLINE ANHYDROUS 80 MG/15 ML UDC PO SCH ×2 (09:46→21:27)
[2023-01-26] MEDS: LevETIRAcetam 500 MG/5 ML UDC ORAL LIQUID GT SCH ×2 (09:46→21:28)
[2023-01-26] MEDS ORDERED: ROCI2 IM (11:06)
[2023-01-26] MEDS ORDERED: POTASSIUM CHLOR 20 mEq/Packet PO (11:07)
[2023-01-27] VITALS (12 sets, daily range): BP systolic 96–123; PULSE 74–133; RESP 15–16; TEMP 97.4–98.6; O2SAT 93–100
[2023-01-27] MEDS: IPRATROPIUM/ALBUTEROL SULFATE 3 ML AMPUL.NEB (DUONEB) INH SCH ×3 (03:33→11:48)
[2023-01-27] MEDS: PANTOPRAZOLE SODIUM 40 MG/VIAL (PROTONIX) IVP SCH (09:11)
[2023-01-27] MEDS: POTASSIUM CHLORIDE 20 MEQ/PKT PACKET PO SCH (09:12)
[2023-01-27] MEDS: LevETIRAcetam 500 MG/5 ML UDC ORAL LIQUID GT SCH (09:12)
[2023-01-27] MEDS: POLYETHYLENE GLYCOL 3350, 17 GM/ POWD.PACK JT SCH (09:12)
[2023-01-27] MEDS: THEOPHYLLINE ANHYDROUS 80 MG/15 ML UDC PO SCH (09:13)
== END 2023-01-27 12:50 | DRG 130 ==
LOC: SED 13:49 → SIC 15:43 → STU 01-20 18:23
PROVIDERS: ADMIT Family Medicine; ATTEND Family Medicine
PROC: 0DB98ZX Excision of Duodenum, Via Natural or Artificial Opening Endoscopic, Diagnostic (ICD-10-PCS; 2023-01-21)
PROC: 0DB68ZX Excision of Stomach, Via Natural or Artificial Opening Endoscopic, Diagnostic (ICD-10-PCS; 2023-01-21)
PROC: 5A1955Z Respiratory Ventilation, Greater than 96 Consecutive Hours (ICD-10-PCS; principal; 2023-01-21 10:45)
PROC: 0DHA3UZ Insertion of Feeding Device into Jejunum, Percutaneous Approach (ICD-10-PCS; 2023-01-24)
DX: J69.0 Pneumonitis due to inhalation of food and vomit (principal); E43 Unspecified severe protein-calorie malnutrition; G93.1 Anoxic brain damage, not elsewhere classified; J96.20 Acute and chronic respiratory failure, unspecified whether with hypoxia or hypercapnia; K20.91 Esophagitis, unspecified with bleeding; E88.A Wasting disease (syndrome) due to underlying condition; K25.4 Chronic or unspecified gastric ulcer with hemorrhage; D63.8 Anemia in other chronic diseases classified elsewhere; K94.23 Gastrostomy malfunction; J44.0 Chronic obstructive pulmonary disease with (acute) lower respiratory infection; Z99.11 Dependence on respirator [ventilator] status; R13.10 Dysphagia, unspecified; N39.0 Urinary tract infection, site not specified; G40.909 Epilepsy, unspecified, not intractable, without status epilepticus; F79 Unspecified intellectual disabilities; K80.20 Calculus of gallbladder without cholecystitis without obstruction; E87.6 Hypokalemia; I10 Essential (primary) hypertension; K56.41 Fecal impaction; F31.9 Bipolar disorder, unspecified; E11.9 Type 2 diabetes mellitus without complications; E86.0 Dehydration; Z16.24 Resistance to multiple antibiotics; R00.1 Bradycardia, unspecified; Z68.1 Body mass index [BMI] 19.9 or less, adult; Z74.01 Bed confinement status; Z85.828 Personal history of other malignant neoplasm of skin
CPT/HCPCS: 36415; 43239; 71045; 71250-TC; 74018; 76376; 80048; 80053; 81000; 81001; 81015; 82150; 82962; 83605; 83690; 83735; 85007; 85025; 85027; 85610-TC; 85730-TC; 86886; 86900; 86901; 87040; 87070-TC; 87081; 87086; 87205-TC; 88305; 88312; 88313; 93005; 93306; 94002; 94003; 94640; 94760; 96365; 96366; 96367; 99285; C9113; G0378; J0696; J1953; J2060; J2250; J2543; J3010; J3480; J7050; J7060

== ENCOUNTER 2023-08-03 18:16 | Inpatient (IN) | payer OTHER, MEDICAID ==
[~2023-08-03] VITALS: Ht 160 cm; Wt 45.4 kg
[2023-08-03 18:16] VITALS: BP_SYST 94; PULSE 105; RESP 16; TEMP 98.9; O2SAT 99
[~2023-08-03 18:16] MED LIST changes: +AMIN30LI2 PO; -CALC-808 GT; +COLL100 PO; +ENZY1CAP5 PO; +LEVE100S PO; +LORA-258 GT; +MAGN24002 PO; +MERO1VIA23 IV; +OSC500 GT; +POTASSIUM CHLOR 20 mEq/Packet PO; +ROCI2 IM; +SENN-22 GT; -SER100 GT; -TRAZ-250 GT
[2023-08-03] MEDS: NACL 0.9% 1,000 ML IV ONE (19:03)
[2023-08-03 19:18] LABS: BASOPHILS % (AUTO) 0.2 % (0.0-2.0); EOSINOPHILS # (AUTO) 0.2 K/uL (0.0-0.4); EOSINOPHILS % (AUTO) 1.1 % (0.0-4.0); LYMPHOCYTES # (AUTO) 1.9 K/uL (1.0-5.5); LYMPHOCYTES % (AUTO) 9.4 % (20.5-51.5); MEAN CORPUSCULAR HEMOGLOBIN 25 pg (27-31); MEAN CORPUSCULAR HGB CONC 30 % (32-36); MEAN CORPUSCULAR VOLUME 85 fL (79.0-98.0); MONOCYTES # (AUTO) 1.2 K/uL (0.0-1.0); NEUTROPHILS # (AUTO) 16.6 K/uL (1.8-7.7); NEUTROPHILS % (AUTO) 83.3 % (40.0-70.0); PLATELET COUNT (AUTO) 745 K/uL (130-430); RED BLOOD CELL COUNT(AUTO) 2.28 MIL/uL (4.2-6.2); RED CELL DISTRIBUTION WIDTH 16.4 % (9.0-15.0); WHITE BLOOD COUNT (AUTO) 19.9 K/uL (4.8-10.8)
[2023-08-03 19:24] LABS: HEMATOCRIT 19.3 % (36-54); HEMOGLOBIN 5.7 g/dL (14.0-18.0)
[2023-08-03 19:30] LABS: INR 1.1 (0.80-1.20); PROTHROMBIN TIME 11.3 SECS (9.5-12.5)
[2023-08-03 19:32] LABS: ALANINE AMINOTRANSFERASE 37 U/L (12-78); ALBUMIN 1.8 g/dL (3.4-4.8); ANION GAP 15 (5-15); ASPARTATE AMINOTRANSFERASE 26 U/L (10-37); BILIRUBIN,DIRECT 0.1 mg/dL (0.0-0.3); CALCIUM 8.5 mg/dL (8.4-11.0); CARBON DIOXIDE 29 mmol/L (23-29); CHLORIDE 105 mmol/L (98-107); GLUCOSE 235 mg/dL (74-106); POTASSIUM 4.5 mmol/L (3.5-5.1); SODIUM SERUM 149 mmol/L (136-145); TOTAL BILIRUBIN 0.2 mg/dL (0.0-1.0); TOTAL PROTEIN, SERUM 7.2 g/dL (6.4-8.3); UREA NITROGEN, BLOOD 45 mg/dL (8-21)
[2023-08-03 19:35] LABS: GFR AFRICAN AMERICAN 85 mL/min (>90); GFR NON AFRICAN-AMERICAN 70 mL/min (>90)
[2023-08-03 20:00] LABS: ANISOCYTOSIS 1+; HELMET CELLS FEW; HYPOCHROMASIA 1+; STOMATOCYTES FEW; TEAR DROP CELLS FEW
[2023-08-03] MEDS ORDERED: AZITHROMYCIN 500 MG/VIAL (ZITHROMAX) IV ONE (21:14)
[2023-08-03] MEDS ORDERED: PIPERACILLIN/TAZOBACTAM 4.5 GM/VIAL (ZOSYN) IV ONE (21:14)
[2023-08-03] MEDS ORDERED: VANCOMYCIN HCL 1000 MG/VIAL IV ONE (21:15)
[2023-08-03] MEDS: PIPERACILLIN/TAZO 4.5 GM in NS 100 ML IV ONE (21:18)
[2023-08-03] MEDS: IPRATROPIUM/ALBUTEROL SULFATE 3 ML AMPUL.NEB (DUONEB) INH SCH (21:30)
[2023-08-03 21:37] LABS: BILIRUBIN,URINE NEGATIVE (NEGATIVE); BLOOD, URINE 1+ (NEGATIVE); CLARITY/URINE SL CLOUDY (CLEAR); COLOR,URINE YELLOW (YELLOW); GLUCOSE,URINE NEGATIVE (NEGATIVE); KETONES,URINE NEGATIVE (NEGATIVE); LEUKOCYTE ESTERASE ,URINE 2+ (NEGATIVE); NITRITE, URINE NEGATIVE (NEGATIVE); PH,URINE 5.5 (5.0-8.0); PROTEIN URINE NEGATIVE (NEGATIVE); UROBILINOGEN,URINE 0.2 (0.2-1.0)
[2023-08-03 21:54] LABS: BACTERIA,URINE MODERATE /HPF (None Seen); MUCUS,URINE 2+ /LPF (None Seen); WBC,URINE 80-100 /HPF (0-3); YEAST,URINE Moderate /HPF (None Seen)
[2023-08-03] MEDS ORDERED: ASCO500S10 GT (21:55)
[2023-08-03] MEDS ORDERED: LACT1TAB15 GT (21:55)
[2023-08-03] MEDS ORDERED: ZINC50TA15 GT (21:55)
[2023-08-03] MEDS ORDERED: COLL30OI2 (21:55)
[2023-08-03] MEDS ORDERED: HYDR-3919 GT ×2 (21:55)
[2023-08-03] MEDS ORDERED: MIDO10TA6 GT (21:55)
[2023-08-03] MEDS: NACL 0.9% 1,000 ML IV SCH (22:49)
[2023-08-03] MEDS: VANCOMYCIN HCL 1,000 MG in NS 250 ML IV ONE (22:50)
[2023-08-03 23:15] VITALS: BP_SYST 87; PULSE 120
[2023-08-03 23:35] VITALS: BP_SYST 87; PULSE 118; O2SAT 99
[2023-08-03 23:47] LABS: INR 1.1 (0.80-1.20); PROTHROMBIN TIME 11.4 SECS (9.5-12.5)
[2023-08-04] VITALS (12 sets, daily range): BP systolic 100–154; PULSE 91–109
[2023-08-04] MEDS: AZITHROMYCIN 500 MG in NS 250 ML IV ONE (01:05)
[2023-08-04] MEDS ORDERED: PIPERACILLIN/TAZOBACTAM 4.5 GM/VIAL (ZOSYN) IV ONE ×2 (06:11→22:20)
[2023-08-04] MEDS: PIPERACILLIN/TAZO 4.5 GM in D5W 100 ML IV SCH ×2 (06:14→14:22)
[2023-08-04 07:50] LABS: ALBUMIN 1.7 g/dL (3.4-4.8); CALCIUM 7.8 mg/dL (8.4-11.0); CREATININE 0.87 mg/dL (0.55-1.30); POTASSIUM 4.4 mmol/L (3.5-5.1); TOTAL BILIRUBIN 0.3 mg/dL (0.0-1.0); TOTAL PROTEIN, SERUM 6.3 g/dL (6.4-8.3)
[2023-08-04 08:16] LABS: HEMATOCRIT 24.7 % (36-54); MEAN CORPUSCULAR HEMOGLOBIN 28 pg (27-31); MEAN CORPUSCULAR HGB CONC 33 % (32-36); MEAN CORPUSCULAR VOLUME 85 fL (79.0-98.0); PLATELET COUNT (AUTO) 387 K/uL (130-430); RED BLOOD CELL COUNT(AUTO) 2.91 MIL/uL (4.2-6.2); RED CELL DISTRIBUTION WIDTH 16.5 % (9.0-15.0)
[2023-08-04 08:39] LABS: WHITE BLOOD COUNT (AUTO) 27.8 K/uL (4.8-10.8)
[2023-08-04] MEDS: levETIRAcetam 500 MG IV PREMIX 100 ML IV SCH (08:43)
[2023-08-04] MEDS: PANTOPRAZOLE SODIUM 40 MG/VIAL (PROTONIX) IVP SCH (08:45)
[2023-08-04] MEDS ORDERED: levETIRAcetam 500 MG IV PREMIX 100 ML IV SCH (09:00)
[2023-08-04 11:20] LABS: ATYPICAL LYMPHOCYTES % 0 % (0-0); BAND % (MANUAL) 14 % (0-6); BASOPHILS % (MANUAL) 0 % (0-2); EOSINOPHILS % (MANUAL) 0 % (0-7); LYMPHOCYTES % (MANUAL) 4 % (20-46); MONOCYTES % (MANUAL) 3 % (0-11); SMUDGE CELLS RARE
[2023-08-04 11:21] LABS: ANISOCYTOSIS 1+; HYPOCHROMASIA 1+; PLATELET ESTIMATE ADEQUATE (ADEQUATE)
[2023-08-04] MEDS: FLUCONAZOLE 200 mg/ NS 100 ML IV SCH (12:55)
[2023-08-04] MEDS: D5/0.45 NS 1,000 ML IV SCH (12:56)
[2023-08-04] MEDS: IPRATROPIUM/ALBUTEROL SULFATE 3 ML AMPUL.NEB (DUONEB) INH SCH (19:13)
[2023-08-04] MEDS: IPRATROPIUM/ALBUTEROL SULFATE 3 ML AMPUL.NEB (DUONEB) INH PRN (23:14)
[2023-08-05] VITALS (17 sets, daily range): BP systolic 102–140; PULSE 83–109; RESP 16; TEMP 97.2–98; O2SAT 93–100
[2023-08-05] MEDS: PIPERACILLIN/TAZOBACTAM 4.5 GM/VIAL (ZOSYN) IV ONE (01:28)
[2023-08-05 11:54] LABS: BASOPHILS # (AUTO) 0.1 K/uL (0.0-0.2); BASOPHILS % (AUTO) 0.5 % (0.0-2.0); EOSINOPHILS % (AUTO) 0.4 % (0.0-4.0); LYMPHOCYTES # (AUTO) 0.8 K/uL (1.0-5.5); LYMPHOCYTES % (AUTO) 8.2 % (20.5-51.5); MEAN CORPUSCULAR HEMOGLOBIN 28 pg (27-31); MEAN CORPUSCULAR HGB CONC 33 % (32-36); MEAN CORPUSCULAR VOLUME 85 fL (79.0-98.0); MONOCYTES # (AUTO) 0.5 K/uL (0.0-1.0); MONOCYTES % (AUTO) 5.3 % (1.7-9.3); NEUTROPHILS # (AUTO) 8.7 K/uL (1.8-7.7); NEUTROPHILS % (AUTO) 85.6 % (40.0-70.0); PLATELET COUNT (AUTO) 352 K/uL (130-430); RED BLOOD CELL COUNT(AUTO) 2.46 MIL/uL (4.2-6.2); RED CELL DISTRIBUTION WIDTH 16.6 % (9.0-15.0); WHITE BLOOD COUNT (AUTO) 10.1 K/uL (4.8-10.8)
[2023-08-05 12:02] LABS: HEMATOCRIT 20.8 % (36-54); HEMOGLOBIN 6.9 g/dL (14.0-18.0)
[2023-08-06] VITALS (17 sets, daily range): BP systolic 107–144; PULSE 68–88; RESP 16; TEMP 97–98.5; O2SAT 98–100
[2023-08-06 05:59] LABS: BASOPHILS % (AUTO) 0.2 % (0.0-2.0); EOSINOPHILS # (AUTO) 0.1 K/uL (0.0-0.4); EOSINOPHILS % (AUTO) 0.8 % (0.0-4.0); HEMATOCRIT 30.8 % (36-54); HEMOGLOBIN 10.2 g/dL (14.0-18.0); LYMPHOCYTES # (AUTO) 0.7 K/uL (1.0-5.5); MEAN CORPUSCULAR HEMOGLOBIN 29 pg (27-31); MEAN CORPUSCULAR HGB CONC 33 % (32-36); MEAN CORPUSCULAR VOLUME 87 fL (79.0-98.0); MONOCYTES # (AUTO) 0.5 K/uL (0.0-1.0); MONOCYTES % (AUTO) 5.2 % (1.7-9.3); NEUTROPHILS % (AUTO) 85.8 % (40.0-70.0); PLATELET COUNT (AUTO) 344 K/uL (130-430); RED BLOOD CELL COUNT(AUTO) 3.54 MIL/uL (4.2-6.2); RED CELL DISTRIBUTION WIDTH 16.1 % (9.0-15.0); WHITE BLOOD COUNT (AUTO) 9.3 K/uL (4.8-10.8)
[2023-08-06 06:01] LABS: INR 1.1 (0.80-1.20); PROTHROMBIN TIME 11.7 SECS (9.5-12.5)
[2023-08-06] MEDS: fentaNYL CITRATE/PF 100 MCG/2 ML AMP ONE (07:08)
[2023-08-06] MEDS: MIDAZOLAM HCL 5 MG/5 ML VIAL ONE (07:08)
[2023-08-07] VITALS (19 sets, daily range): BP systolic 116–153; PULSE 70–87; RESP 16–18; TEMP 97–98.7; O2SAT 98–100
[2023-08-07] MEDS: BALSAM PERU/CASTOR OIL 56.7 GM OINT...G. TP SCH (16:12)
[2023-08-07] MEDS: CEFTAZIDIME 2 GM in D5W 100 ML IV SCH (23:52)
[2023-08-08] VITALS (18 sets, daily range): BP systolic 116–130; PULSE 74–88; RESP 16–20; TEMP 97–97.2; O2SAT 98–100
[2023-08-08] MEDS ORDERED: GASTROGRAFIN 120 ML ONE (08:53)
[2023-08-09] VITALS (19 sets, daily range): BP systolic 114–146; PULSE 80–102; RESP 15–20; TEMP 97–98.6; O2SAT 97–100
[2023-08-10] VITALS (17 sets, daily range): BP systolic 90–131; PULSE 77–100; RESP 15–20; TEMP 96.4–98.3; O2SAT 97–100
[2023-08-10 07:20] LABS: ALBUMIN 1.5 g/dL (3.4-4.8); CALCIUM 7.7 mg/dL (8.4-11.0); CREATININE 0.55 mg/dL (0.55-1.30); TOTAL BILIRUBIN 0.2 mg/dL (0.0-1.0); TOTAL PROTEIN, SERUM 6.2 g/dL (6.4-8.3)
[2023-08-10 08:05] LABS: BASOPHILS % (AUTO) 0.3 % (0.0-2.0); EOSINOPHILS # (AUTO) 0.2 K/uL (0.0-0.4); EOSINOPHILS % (AUTO) 1.4 % (0.0-4.0); HEMATOCRIT 35.6 % (36-54); HEMOGLOBIN 11.6 g/dL (14.0-18.0); LYMPHOCYTES # (AUTO) 0.8 K/uL (1.0-5.5); LYMPHOCYTES % (AUTO) 6.7 % (20.5-51.5); MEAN CORPUSCULAR HEMOGLOBIN 29 pg (27-31); MEAN CORPUSCULAR HGB CONC 33 % (32-36); MEAN CORPUSCULAR VOLUME 89 fL (79.0-98.0); MONOCYTES # (AUTO) 0.6 K/uL (0.0-1.0); MONOCYTES % (AUTO) 5.3 % (1.7-9.3); NEUTROPHILS # (AUTO) 10.3 K/uL (1.8-7.7); NEUTROPHILS % (AUTO) 86.3 % (40.0-70.0); PLATELET COUNT (AUTO) 391 K/uL (130-430); RED BLOOD CELL COUNT(AUTO) 3.98 MIL/uL (4.2-6.2); RED CELL DISTRIBUTION WIDTH 17.4 % (9.0-15.0); WHITE BLOOD COUNT (AUTO) 11.9 K/uL (4.8-10.8)
[2023-08-10] MEDS: POTASSIUM CHLORIDE 20 MEQ/PKT PACKET GT ONE (17:40)
[2023-08-11] VITALS (18 sets, daily range): BP systolic 110–130; PULSE 77–109; RESP 16–18; TEMP 96.5–98.1; O2SAT 93–100
[2023-08-11] MEDS: ONDANSETRON HCL 4 MG/2 ML VIAL IVP PRN (02:24)
[2023-08-11 08:32] LABS: EOSINOPHILS # (AUTO) 0.1 K/uL (0.0-0.4); EOSINOPHILS % (AUTO) 0.3 % (0.0-4.0); HEMATOCRIT 31.2 % (36-54); HEMOGLOBIN 10.3 g/dL (14.0-18.0); LYMPHOCYTES # (AUTO) 0.7 K/uL (1.0-5.5); LYMPHOCYTES % (AUTO) 3.6 % (20.5-51.5); MEAN CORPUSCULAR HEMOGLOBIN 29 pg (27-31); MEAN CORPUSCULAR HGB CONC 33 % (32-36); MEAN CORPUSCULAR VOLUME 87 fL (79.0-98.0); MONOCYTES # (AUTO) 0.7 K/uL (0.0-1.0); MONOCYTES % (AUTO) 3.4 % (1.7-9.3); NEUTROPHILS # (AUTO) 19.1 K/uL (1.8-7.7); PLATELET COUNT (AUTO) 414 K/uL (130-430); RED CELL DISTRIBUTION WIDTH 17.2 % (9.0-15.0); WHITE BLOOD COUNT (AUTO) 20.6 K/uL (4.8-10.8)
[2023-08-11 09:21] LABS: ALBUMIN 1.4 g/dL (3.4-4.8); CALCIUM 7.9 mg/dL (8.4-11.0); CREATININE 0.57 mg/dL (0.55-1.30); POTASSIUM 3.4 mmol/L (3.5-5.1); TOTAL BILIRUBIN 0.4 mg/dL (0.0-1.0); TOTAL PROTEIN, SERUM 5.9 g/dL (6.4-8.3)
[2023-08-11 12:36] LABS: NEUTROPHILS % (AUTO) 92.7 % (40.0-70.0)
[2023-08-11] MEDS: POTASSIUM CHLORIDE 20 MEQ/PKT PACKET GT ONE (15:41)
[2023-08-11] MEDS: LORazepam 2 MG/ML VIAL IVP PRN (17:55)
[2023-08-11] MEDS: PIPERACILLIN/TAZO 4.5 GM in D5W 100 ML IV SCH (20:26)
[2023-08-12] VITALS (17 sets, daily range): BP systolic 101–116; PULSE 86–116; RESP 16–20; TEMP 97.3–98.2; O2SAT 93–100
[2023-08-12 04:22] LABS: BASOPHILS % (AUTO) 0.1 % (0.0-2.0); EOSINOPHILS % (AUTO) 0.2 % (0.0-4.0); HEMATOCRIT 31.1 % (36-54); HEMOGLOBIN 10.2 g/dL (14.0-18.0); LYMPHOCYTES # (AUTO) 0.5 K/uL (1.0-5.5); LYMPHOCYTES % (AUTO) 2.2 % (20.5-51.5); MEAN CORPUSCULAR HEMOGLOBIN 28 pg (27-31); MEAN CORPUSCULAR HGB CONC 33 % (32-36); MEAN CORPUSCULAR VOLUME 87 fL (79.0-98.0); MONOCYTES # (AUTO) 0.6 K/uL (0.0-1.0); MONOCYTES % (AUTO) 2.7 % (1.7-9.3); NEUTROPHILS # (AUTO) 20.2 K/uL (1.8-7.7); NEUTROPHILS % (AUTO) 94.8 % (40.0-70.0); PLATELET COUNT (AUTO) 451 K/uL (130-430); RED BLOOD CELL COUNT(AUTO) 3.59 MIL/uL (4.2-6.2); RED CELL DISTRIBUTION WIDTH 17.1 % (9.0-15.0); WHITE BLOOD COUNT (AUTO) 21.3 K/uL (4.8-10.8)
[2023-08-12 04:45] LABS: ALBUMIN 1.4 g/dL (3.4-4.8); CALCIUM 8.2 mg/dL (8.4-11.0); CREATININE 0.56 mg/dL (0.55-1.30); POTASSIUM 3.9 mmol/L (3.5-5.1); TOTAL BILIRUBIN 0.5 mg/dL (0.0-1.0); TOTAL PROTEIN, SERUM 5.8 g/dL (6.4-8.3)
[2023-08-12] MEDS: METOCLOPRAMIDE HCL 10 MG/2 ML VIAL IVP SCH (21:24)
[2023-08-13] VITALS (16 sets, daily range): BP systolic 123–133; PULSE 80–103; RESP 16–25; TEMP 97.2–98.2; O2SAT 93–100
[2023-08-13 06:39] LABS: BASOPHILS % (AUTO) 0.1 % (0.0-2.0); EOSINOPHILS % (AUTO) 0.2 % (0.0-4.0); HEMATOCRIT 33.9 % (36-54); HEMOGLOBIN 11.2 g/dL (14.0-18.0); LYMPHOCYTES # (AUTO) 0.6 K/uL (1.0-5.5); LYMPHOCYTES % (AUTO) 3.7 % (20.5-51.5); MEAN CORPUSCULAR HEMOGLOBIN 29 pg (27-31); MEAN CORPUSCULAR HGB CONC 33 % (32-36); MEAN CORPUSCULAR VOLUME 88 fL (79.0-98.0); MONOCYTES # (AUTO) 0.6 K/uL (0.0-1.0); MONOCYTES % (AUTO) 3.3 % (1.7-9.3); NEUTROPHILS # (AUTO) 15.9 K/uL (1.8-7.7); NEUTROPHILS % (AUTO) 92.7 % (40.0-70.0); PLATELET COUNT (AUTO) 434 K/uL (130-430); RED BLOOD CELL COUNT(AUTO) 3.85 MIL/uL (4.2-6.2); RED CELL DISTRIBUTION WIDTH 17.2 % (9.0-15.0); WHITE BLOOD COUNT (AUTO) 17.2 K/uL (4.8-10.8)
[2023-08-13 06:44] LABS: ALBUMIN 1.5 g/dL (3.4-4.8); CALCIUM 8.6 mg/dL (8.4-11.0); CREATININE 0.6 mg/dL (0.55-1.30); POTASSIUM 3.1 mmol/L (3.5-5.1); TOTAL BILIRUBIN 0.5 mg/dL (0.0-1.0); TOTAL PROTEIN, SERUM 6.2 g/dL (6.4-8.3)
[2023-08-13] MEDS ORDERED: *TPN PER PHARMACY XX PRN (18:30)
[2023-08-13] MEDS: KCL 40 mEq in 100 mL (PREMIX) 100 ML IV ONE (21:58)
[2023-08-14] VITALS (19 sets, daily range): BP systolic 110–143; PULSE 81–99; RESP 16–23; TEMP 96.3–97.5; O2SAT 96–99
[2023-08-14 08:40] LABS: CALCIUM 8.2 mg/dL (8.4-11.0); POTASSIUM 3.5 mmol/L (3.5-5.1)
[2023-08-14 08:41] LABS: ALBUMIN 1.4 g/dL (3.4-4.8); CREATININE 0.53 mg/dL (0.55-1.30); PHOSPHORUS 3.3 mg/dL (2.7-4.5); TOTAL BILIRUBIN 0.5 mg/dL (0.0-1.0); TOTAL PROTEIN, SERUM 5.7 g/dL (6.4-8.3)
[2023-08-14] MEDS: ERTAPENEM SODIUM 1 GM in NS 50 ML IV SCH (12:11)
[2023-08-14] MEDS: SCOPOLAMINE HYDROBROMIDE 1 MG PATCH .72 H (TRANSDERM-SCOP) TD SCH (22:25)
[2023-08-15] VITALS (21 sets, daily range): BP systolic 109–128; PULSE 79–106; RESP 16–23; TEMP 96.7–98.6; O2SAT 94–100
[2023-08-15 06:44] LABS: ALBUMIN 1.3 g/dL (3.4-4.8); CALCIUM 7.6 mg/dL (8.4-11.0); CREATININE 0.52 mg/dL (0.55-1.30); PHOSPHORUS 3.1 mg/dL (2.7-4.5); TOTAL BILIRUBIN 0.2 mg/dL (0.0-1.0); TOTAL PROTEIN, SERUM 5.5 g/dL (6.4-8.3)
[2023-08-16] VITALS (18 sets, daily range): BP systolic 125–160; PULSE 86–99; RESP 16–18; TEMP 96.6–98.8; O2SAT 95–99
[2023-08-16 10:17] LABS: BASOPHILS % (AUTO) 0.2 % (0.0-2.0); EOSINOPHILS # (AUTO) 0.1 K/uL (0.0-0.4); EOSINOPHILS % (AUTO) 1.1 % (0.0-4.0); HEMATOCRIT 28.7 % (36-54); HEMOGLOBIN 9.1 g/dL (14.0-18.0); LYMPHOCYTES # (AUTO) 0.7 K/uL (1.0-5.5); LYMPHOCYTES % (AUTO) 9.1 % (20.5-51.5); MEAN CORPUSCULAR HEMOGLOBIN 28 pg (27-31); MEAN CORPUSCULAR HGB CONC 32 % (32-36); MEAN CORPUSCULAR VOLUME 89 fL (79.0-98.0); MONOCYTES # (AUTO) 0.6 K/uL (0.0-1.0); MONOCYTES % (AUTO) 7.1 % (1.7-9.3); NEUTROPHILS # (AUTO) 6.5 K/uL (1.8-7.7); NEUTROPHILS % (AUTO) 82.5 % (40.0-70.0); PLATELET COUNT (AUTO) 336 K/uL (130-430); RED CELL DISTRIBUTION WIDTH 17.5 % (9.0-15.0); WHITE BLOOD COUNT (AUTO) 7.9 K/uL (4.8-10.8)
[2023-08-16 11:50] LABS: ALBUMIN 1.2 g/dL (3.4-4.8); CALCIUM 7.8 mg/dL (8.4-11.0); CREATININE 0.59 mg/dL (0.55-1.30); PHOSPHORUS 2.8 mg/dL (2.7-4.5); POTASSIUM 3.4 mmol/L (3.5-5.1); TOTAL BILIRUBIN 0.2 mg/dL (0.0-1.0); TOTAL PROTEIN, SERUM 5.2 g/dL (6.4-8.3)
[2023-08-16] MEDS: IPRATROPIUM/ALBUTEROL SULFATE 3 ML AMPUL.NEB (DUONEB) INH SCH (19:31)
[2023-08-16] MEDS: ACETYLCYSTEINE 20% 4 ML VIAL (RT) INH SCH (19:33)
[2023-08-17] VITALS (17 sets, daily range): BP systolic 103–125; PULSE 81–99; RESP 16–25; TEMP 97.2–97.9; O2SAT 98–100
[2023-08-17 07:02] LABS: ALBUMIN 1.3 g/dL (3.4-4.8); CALCIUM 8.2 mg/dL (8.4-11.0); CREATININE 0.51 mg/dL (0.55-1.30); PHOSPHORUS 2.6 mg/dL (2.7-4.5); TOTAL BILIRUBIN 0.3 mg/dL (0.0-1.0); TOTAL PROTEIN, SERUM 5.2 g/dL (6.4-8.3)
[2023-08-17] MEDS: MEROPENEM 1 GM in NS 100 ML IV SCH (14:07)
[2023-08-18] VITALS (17 sets, daily range): BP systolic 97–124; PULSE 78–102; RESP 16–18; TEMP 87.8–99.5; O2SAT 97–100
[2023-08-18 05:49] LABS: ALBUMIN 1.3 g/dL (3.4-4.8); CALCIUM 8.5 mg/dL (8.4-11.0); CREATININE 0.46 mg/dL (0.55-1.30); POTASSIUM 3.5 mmol/L (3.5-5.1); TOTAL BILIRUBIN 0.3 mg/dL (0.0-1.0); TOTAL PROTEIN, SERUM 5.6 g/dL (6.4-8.3)
[2023-08-18] MEDS: [UNRECOGNIZED DRUG - OTHER] IV SCH (22:08)
[2023-08-18] MEDS: TPN CENTRAL IV SCH (22:08)
[2023-08-18] MEDS: POTASSIUM CHLORIDE IV SCH (22:08)
[2023-08-18] MEDS: SODIUM CHLORIDE IV SCH (22:08)
[2023-08-19] VITALS (19 sets, daily range): BP systolic 101–132; PULSE 77–98; RESP 15–16; TEMP 97.6–97.8; O2SAT 98–100
[2023-08-19 05:56] LABS: ALBUMIN 1.4 g/dL (3.4-4.8); CALCIUM 8.3 mg/dL (8.4-11.0); CREATININE 0.56 mg/dL (0.55-1.30); PHOSPHORUS 2.4 mg/dL (2.7-4.5); TOTAL BILIRUBIN 0.3 mg/dL (0.0-1.0); TOTAL PROTEIN, SERUM 5.9 g/dL (6.4-8.3)
[2023-08-19] MEDS: TPN CENTRAL 0.0001 ML, SODIUM CHLORIDE 40 MEQ, POTASSIUM CHLORIDE 40 MEQ, K PHOS 18 MM,... IV SCH (22:14)
[2023-08-20] VITALS (21 sets, daily range): BP systolic 97–130; PULSE 94–117; RESP 16–20; TEMP 96.5–101.3; O2SAT 96–100
[2023-08-20 07:48] LABS: ALBUMIN 1.5 g/dL (3.4-4.8); CALCIUM 8.1 mg/dL (8.4-11.0); CREATININE 0.58 mg/dL (0.55-1.30); POTASSIUM 4.4 mmol/L (3.5-5.1); TOTAL BILIRUBIN 0.3 mg/dL (0.0-1.0); TOTAL PROTEIN, SERUM 6.7 g/dL (6.4-8.3)
[2023-08-20 08:49] LABS: PHOSPHORUS 2.3 mg/dL (2.7-4.5)
[2023-08-20 11:05] LABS: BASOPHILS % (AUTO) 0.6 % (0.0-2.0); EOSINOPHILS # (AUTO) 0.2 K/uL (0.0-0.4); HEMATOCRIT 31.4 % (36-54); HEMOGLOBIN 10.5 g/dL (14.0-18.0); LYMPHOCYTES # (AUTO) 0.4 K/uL (1.0-5.5); LYMPHOCYTES % (AUTO) 7.4 % (20.5-51.5); MEAN CORPUSCULAR HEMOGLOBIN 29 pg (27-31); MEAN CORPUSCULAR HGB CONC 33 % (32-36); MEAN CORPUSCULAR VOLUME 87 fL (79.0-98.0); MONOCYTES # (AUTO) 0.3 K/uL (0.0-1.0); MONOCYTES % (AUTO) 6.4 % (1.7-9.3); NEUTROPHILS # (AUTO) 3.9 K/uL (1.8-7.7); NEUTROPHILS % (AUTO) 81.6 % (40.0-70.0); PLATELET COUNT (AUTO) 264 K/uL (130-430); RED BLOOD CELL COUNT(AUTO) 3.61 MIL/uL (4.2-6.2); RED CELL DISTRIBUTION WIDTH 17.9 % (9.0-15.0); WHITE BLOOD COUNT (AUTO) 4.8 K/uL (4.8-10.8)
[2023-08-20] MEDS: METOCLOPRAMIDE HCL 10 MG TABLET GT SCH (21:27)
[2023-08-20] MEDS: [UNRECOGNIZED DRUG - OTHER] IV SCH (21:33)
[2023-08-20] MEDS: POTASSIUM CHLORIDE IV SCH (21:33)
[2023-08-20] MEDS: TPN CENTRAL IV SCH (21:33)
[2023-08-20] MEDS: SODIUM CHLORIDE IV SCH (21:33)
[2023-08-20] MEDS: ACETAMINOPHEN 650 MG/20.3 ML UDC GT PRN (22:31)
[2023-08-21] VITALS (21 sets, daily range): BP systolic 113–138; PULSE 72–126; RESP 15–19; TEMP 98.1–101.7; O2SAT 95–99
[2023-08-21 01:49] LABS: ALBUMIN 1.4 g/dL (3.4-4.8); CALCIUM 7.8 mg/dL (8.4-11.0); CREATININE 0.77 mg/dL (0.55-1.30); PHOSPHORUS 2.7 mg/dL (2.7-4.5); POTASSIUM 4.4 mmol/L (3.5-5.1); TOTAL BILIRUBIN 0.3 mg/dL (0.0-1.0); TOTAL PROTEIN, SERUM 6.3 g/dL (6.4-8.3)
[2023-08-21] MEDS: VANCOMYCIN HCL 750 MG in NS 250 ML IV SCH (13:09)
[2023-08-21] MEDS ORDERED: NALOXONE HCL 0.4 MG/ML AMP (NARCAN) IVP PRN (21:45)
[2023-08-22] VITALS (18 sets, daily range): BP systolic 106–125; PULSE 81–107; RESP 16–22; TEMP 97.5–100.3; O2SAT 98–100
[2023-08-22] MEDS: MORPHINE 2 MG/ML INJ. SYRINGE IVP PRN (04:16)
[2023-08-22 05:19] LABS: ALBUMIN 1.5 g/dL (3.4-4.8); CALCIUM 8.1 mg/dL (8.4-11.0); CREATININE 0.6 mg/dL (0.55-1.30); PHOSPHORUS 2.5 mg/dL (2.7-4.5); POTASSIUM 3.8 mmol/L (3.5-5.1); TOTAL BILIRUBIN 0.2 mg/dL (0.0-1.0); TOTAL PROTEIN, SERUM 6.4 g/dL (6.4-8.3)
[2023-08-22] MEDS ORDERED: *TPN PER PHARMACY XX PRN (16:30)
[2023-08-23] VITALS (18 sets, daily range): BP systolic 101–122; PULSE 78–114; RESP 14–20; TEMP 98.2–99.7; O2SAT 97–100
[2023-08-23 06:04] LABS: ALBUMIN 1.4 g/dL (3.4-4.8); CREATININE 0.48 mg/dL (0.55-1.30); POTASSIUM 4.3 mmol/L (3.5-5.1); TOTAL BILIRUBIN 0.2 mg/dL (0.0-1.0)
[2023-08-24] VITALS (19 sets, daily range): BP systolic 99–141; PULSE 87–109; RESP 16–20; TEMP 98.4–100.7; O2SAT 98–99
[2023-08-24 07:42] LABS: ALBUMIN 1.5 g/dL (3.4-4.8); CALCIUM 8.4 mg/dL (8.4-11.0); CREATININE 0.6 mg/dL (0.55-1.30); PHOSPHORUS 2.8 mg/dL (2.7-4.5); POTASSIUM 4.6 mmol/L (3.5-5.1); TOTAL BILIRUBIN 0.3 mg/dL (0.0-1.0); TOTAL PROTEIN, SERUM 6.5 g/dL (6.4-8.3)
[2023-08-25] VITALS (19 sets, daily range): BP systolic 95–144; PULSE 78–108; RESP 14–20; TEMP 97.4–99; O2SAT 95–100
[2023-08-25 08:43] LABS: ALBUMIN 1.6 g/dL (3.4-4.8); CALCIUM 8.6 mg/dL (8.4-11.0); CREATININE 0.45 mg/dL (0.55-1.30); PHOSPHORUS 2.6 mg/dL (2.7-4.5); POTASSIUM 4.2 mmol/L (3.5-5.1); TOTAL BILIRUBIN 0.4 mg/dL (0.0-1.0); TOTAL PROTEIN, SERUM 6.8 g/dL (6.4-8.3)
[2023-08-25 08:57] LABS: BASOPHILS % (AUTO) 0.5 % (0.0-2.0); EOSINOPHILS # (AUTO) 1.9 K/uL (0.0-0.4); EOSINOPHILS % (AUTO) 21.3 % (0.0-4.0); HEMATOCRIT 26.1 % (36-54); HEMOGLOBIN 8.5 g/dL (14.0-18.0); LYMPHOCYTES % (AUTO) 10.6 % (20.5-51.5); MEAN CORPUSCULAR HEMOGLOBIN 28 pg (27-31); MEAN CORPUSCULAR HGB CONC 33 % (32-36); MEAN CORPUSCULAR VOLUME 86 fL (79.0-98.0); MONOCYTES # (AUTO) 0.7 K/uL (0.0-1.0); MONOCYTES % (AUTO) 7.5 % (1.7-9.3); NEUTROPHILS # (AUTO) 5.5 K/uL (1.8-7.7); PLATELET COUNT (AUTO) 332 K/uL (130-430); RED BLOOD CELL COUNT(AUTO) 3.02 MIL/uL (4.2-6.2); WHITE BLOOD COUNT (AUTO) 9.2 K/uL (4.8-10.8)
[2023-08-25 09:56] LABS: NEUTROPHILS % (AUTO) 60.1 % (40.0-70.0)
[2023-08-26] VITALS (18 sets, daily range): BP systolic 109–127; PULSE 91–123; RESP 12–18; TEMP 98–100.3; O2SAT 97–100
[2023-08-26 05:10] LABS: ALBUMIN 1.6 g/dL (3.4-4.8); CALCIUM 8.9 mg/dL (8.4-11.0); CREATININE 0.68 mg/dL (0.55-1.30); PHOSPHORUS 3.8 mg/dL (2.7-4.5); POTASSIUM 4.1 mmol/L (3.5-5.1); TOTAL BILIRUBIN 0.5 mg/dL (0.0-1.0)
[2023-08-26] MEDS ORDERED: GASTROGRAFIN 120 ML ONE (08:15)
[2023-08-27] VITALS (18 sets, daily range): BP systolic 119–151; PULSE 92–106; RESP 16–17; TEMP 97.7–99.1; O2SAT 96–98
[2023-08-27 00:26] LABS: BILIRUBIN,URINE 1+ (NEGATIVE); BLOOD, URINE 2+ (NEGATIVE); CLARITY/URINE CLOUDY (CLEAR); COLOR,URINE YELLOW (YELLOW); GLUCOSE,URINE NEGATIVE (NEGATIVE); KETONES,URINE TRACE (NEGATIVE); LEUKOCYTE ESTERASE ,URINE 3+ (NEGATIVE); NITRITE, URINE NEGATIVE (NEGATIVE); PH,URINE 5.5 (5.0-8.0); PROTEIN URINE 1+ (NEGATIVE); UROBILINOGEN,URINE 0.2 (0.2-1.0)
[2023-08-27 00:39] LABS: BACTERIA,URINE MODERATE /HPF (None Seen); WBC,URINE >100 /HPF (0-3); YEAST,URINE Few /HPF (None Seen)
[2023-08-28] VITALS (15 sets, daily range): BP systolic 119–128; PULSE 95–104; RESP 16–22; TEMP 97.6–99.9; O2SAT 97–100
== END 2023-08-28 14:55 | DRG 870 ==
LOC: SED 18:16 → SIC 21:20 → STU 08-04 23:50
PROVIDERS: ADMIT Family Medicine; ATTEND Family Medicine
PROC: 5A1955Z Respiratory Ventilation, Greater than 96 Consecutive Hours (ICD-10-PCS; principal; 2023-08-03)
PROC: 30233N1 Transfusion of Nonautologous Red Blood Cells into Peripheral Vein, Percutaneous Approach (ICD-10-PCS; 2023-08-04)
PROC: 02HV33Z Insertion of Infusion Device into Superior Vena Cava, Percutaneous Approach (ICD-10-PCS; 2023-08-04)
PROC: 0DB58ZX Excision of Esophagus, Via Natural or Artificial Opening Endoscopic, Diagnostic (ICD-10-PCS; 2023-08-06)
PROC: 0DB68ZX Excision of Stomach, Via Natural or Artificial Opening Endoscopic, Diagnostic (ICD-10-PCS; 2023-08-06)
PROC: 0DH67UZ Insertion of Feeding Device into Stomach, Via Natural or Artificial Opening (ICD-10-PCS; 2023-08-26)
DX: A41.51 Sepsis due to Escherichia coli [E. coli] (principal); L89.154 Pressure ulcer of sacral region, stage 4; J96.20 Acute and chronic respiratory failure, unspecified whether with hypoxia or hypercapnia; R65.21 Severe sepsis with septic shock; K20.91 Esophagitis, unspecified with bleeding; K29.71 Gastritis, unspecified, with bleeding; J15.69 Pneumonia due to other Gram-negative bacteria; D62 Acute posthemorrhagic anemia; N39.0 Urinary tract infection, site not specified; Z99.11 Dependence on respirator [ventilator] status; Z16.24 Resistance to multiple antibiotics; Z16.13 Resistance to carbapenem; E87.6 Hypokalemia; Z20.822 Contact with and (suspected) exposure to COVID-19; Y84.8 Other medical procedures as the cause of abnormal reaction of the patient, or of later complication, without mention of misadventure at the time of the procedure; K44.9 Diaphragmatic hernia without obstruction or gangrene; R13.10 Dysphagia, unspecified; I10 Essential (primary) hypertension; G40.909 Epilepsy, unspecified, not intractable, without status epilepticus; E86.0 Dehydration; Z79.899 Other long term (current) drug therapy; Z93.1 Gastrostomy status; Z93.0 Tracheostomy status; Z78.9 Other specified health status; B96.20 Unspecified Escherichia coli [E. coli] as the cause of diseases classified elsewhere
CPT/HCPCS: 36415; 43239; 71045; 74240; 80048; 80053; 80076; 81000; 81001; 81015; 82948; 83605; 83735; 84100; 84478; 84484; 85007; 85025; 85027; 85610; 85730; 86886; 86900; 86901; 86920; 87040; 87070; 87081; 87086; 87186; 87205; 87230; 88305; 88312; 88313; 93005; 94002; 94003; 94070; 94640; 94760; 99291; C9113; G0378; J0456; J0612; J0713; J1335; J1450; J1953; J2060; J2185; J2250; J2270; J2405; J2543; J2765; J3010; J3370; J3475; J3480; J7050; J7060; J7131; J7608; J8597; P9021; Q9963